=== PATIENT | female | born 1950 | race Caucasian/White ===

== ENCOUNTER → 2017-04-23 12:56 | Outpatient (CLI) | payer BC, SELFPAY ==
--- NOTE | 2017-04-23 12:57 | US_ITS ---
STUDY: ULTRASOUND BREAST - RIGHT REASON FOR EXAM: Female, 66 years old. Pain in the right breast. TECHNIQUE: Axial and longitudinal images of the RIGHT breast were performed with a high resolution ultrasound transducer. COMPARISON: Comparison is made with prior mammogram done earlier in the day. FINDINGS: RIGHT Breast: The upper inner quadrant of the right breast was examined by ultrasound. There is homogeneous fibroglandular tissue. No solid or cystic mass lesion is seen. US/Breast Limited Unilateral IMPRESSION: No acute abnormality is seen. ASSESSMENT CATEGORY: BIRADS Category 1: Negative. A letter regarding these results will be sent to the patient by the facility within 30 days. Electronically Signed: Juventino Mccormick MD at 14:30 EST Tel [phone], Service support ,
--- NOTE | 2017-04-23 13:00 | HPBI_ITS ---
MAMMOGRAPHY - BILATERAL DIAGNOSTIC REASON FOR EXAM: Female, 66 years old. Right breast tenderness. PERTINENT HISTORY: TECHNIQUE: Digital bilateral breast gustavo (3D mammographic acquisition) in the CC and MLO projections. 2-D mediolateral oblique (MLO) and craniocaudad (CC) views of both breasts were obtained. CAD: Full Field Digital Mammography with Computer Added Detection was performed. COMPARISON: Comparison is made with prior study dated May 01, 2016 and March 08, 2014. FINDINGS: Breast Composition: The breasts are extremely dense, which lowers the sensitivity of mammography. There are no dominant masses or suspicious calcifications. No other significant abnormalities are identified. There has been no significant change since the prior study. BI/DIAG MAMM W/CAD, BILAT IMPRESSION: Stable bilateral diagnostic mammogram. One year follow-up recommended. (A) ASSESSMENT CATEGORY: BIRADS Category 1: Negative. A letter regarding these results will be sent to the patient by the facility within 30 days. Approximately 10% of breast cancers are not detected by mammography. A normal mammogram should not delay biopsy of a clinically suspicious abnormality. Electronically Signed: Juventino Mccormick MD at 14:03 EST Tel [phone], Service support ,
== END ==
PROVIDERS: Family Provider Family Medicine; PCP Family Medicine; Visit Provider Obstetrics & Gynecology
DX: N64.4 Mastodynia (principal)
CPT/HCPCS: 76642; 77062; 77066; G0279

== ENCOUNTER → 2017-07-24 07:07 | Outpatient (CLI) | payer BC, SELFPAY ==
[2017-07-24 07:51] LABS: Absolute Lymphocyte Count 1.62 X10^3/ul (0.83-4.51); Absolute Neutrophil Count 2.4 X10^3/uL (2.0-7.7); Basophil# 0.02 X10^3/uL; Basophil% 0.4 % (0-1); Eosinophil# 0.25 X10^3/uL; Eosinophils% 5.2 % (0-5); Hematocrit 45.1 % (37-47); Hemoglobin 14.9 g/dl (12.0-15.0); Lymphocyte # 1.62 X10^3/ul (4.0); Lymphocyte % 33.8 % (19-41); Mean Corpuscular Hgb 28.4 pg (27.0-32.0); Mean Corpuscular Volume 86.1 fL (81-99); Mean Platelet Vol. 11.2 fl (6.2-12.0); Monocyte# 0.52 X10^3/uL; Monocyte% 10.9 % (0-10); Neutrophil # 2.37 X10^3/uL (2.7-7.7); Neutrophil % 49.5 % (47-70); Platelet Count 193 K/mm3 (150-450); RBC Distribution Width SD 40.5 fl (35.1-43.9); Red Blood Count 5.24 M/mm3 (4.2-5.4); White Blood Count 4.8 K/mm3 (4.4-11.0)
[2017-07-24 07:52] LABS: POSITIVE COUNT NO; POSITIVE DIFFERENTIAL NO; POSITIVE MORPHOLOGY NO
[2017-07-24 08:19] LABS: AST(SGOT) 18 U/L (15-37); Alanine Aminotransfer ALT/SGPT 21 U/L (13-56); Albumin, Serum 3.6 g/dL (3.2-5.0); Alkaline Phosphatase 64 U/L (45-117); Anion Gap 7 (5-15); BUN 16 mg/dL (7-18); BUN/Creat Ratio 19.1 RATIO (10-20); Calcium,Total 8.6 mg/dL (8.5-10.1); Chloride 108 mmol/L (98-107); Cholesterol 150 mg/dL (200); Creatinine, Serum 0.84 mg/dL (0.55-1.02); EST Glomerular Filtration Rate 72 mL/min (>60); Est Glom Filt Rate - Afr Amer 87 mL/min (>60); Globulin 3.6 g/dL (2.2-4.2); Glucose 89 mg/dL (74-106); High Density Lipoprotein 51 mg/dL; Potassium 4.1 mmol/L (3.5-5.1); Protein, Total 7.2 g/dL (6.4-8.2); Sodium Level 142 mmol/L (136-145); Triglycerides 80 mg/dL; Very Low Density Lipoprotein 16 mg/dL (5-40)
[2017-07-26 13:14] LABS: Vitamin D,25 Hydroxy 27.1 ng/mL (29.95-100.01)
== END ==
PROVIDERS: Family Provider Family Medicine; PCP Family Medicine; Visit Provider Family Medicine
DX: Z00.00 Encounter for general adult medical examination without abnormal findings (principal); M81.0 Age-related osteoporosis without current pathological fracture; I10 Essential (primary) hypertension
CPT/HCPCS: 36415; 80053; 80061; 82306; 85025

== ENCOUNTER → 2017-08-30 14:40 | Outpatient (CLI) | payer BC, SELFPAY ==
--- NOTE | 2017-08-30 14:43 | CT_ITS ---
STUDY: CT CHEST WITHOUT CONTRAST REASON FOR EXAM: Female, 67 years old. Lung nodule RADIATION DOSAGE (If Supplied By Facility): CTDIvol = ( 7.41 ) mGy, DLP = ( 249.74 ) mGycm TECHNIQUE: Transaxial imaging was performed without the administration of intravenous contrast material. Multiplanar coronal and sagittal images were reformatted. Individualized dose optimization techniques were used for this CT. COMPARISON: 08/15/2015. FINDINGS: There is a stable right upper lung pulmonary nodule measuring 1.7 x 1.3 cm. Stable small pulmonary nodules in the right lower lung and left lower lung measuring up to 5 mm. There is no demonstrated pleural abnormality. Normal heart and pericardium. Normal mediastinum. Normal hilar regions. Normal unenhanced pulmonary arteries. Normal aorta arch and descending thoracic aorta. Normal osseous structures. Small hiatal hernia. CT/Chest without Contrast IMPRESSION: Stable pulmonary nodules. No new pulmonary nodules. No acute infiltrate. Electronically Signed: Hair Mccauley DO at 0:02 EDT , Service support ,
== END ==
PROVIDERS: Family Provider Family Medicine; PCP Family Medicine; Visit Provider Internal Medicine Pulmonary Disease
DX: R91.8 Other nonspecific abnormal finding of lung field (principal)
CPT/HCPCS: 71250

== ENCOUNTER 2018-11-09 11:47 | Emergency (ER) | payer OTHER, BC, SELFPAY ==
[2018-03-22 09:23] VITALS: BMI 26.1
[2018-11-09 11:48] VITALS: BP 160/108; PULSE 68; RESP 18; TEMP 36.8; O2SAT 97; BMI 24.5
--- NOTE | 2018-11-09 11:51 | ED.RN ---
SPOUSE IS RUDE. YELLS AT STAFF STATING THAT I WAS IGNORANT FOR ASKING IF THE PT WOULD LIKE A WHEEL CHAIR. 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
--- NOTE | 2018-11-09 12:39 | RAD_ITS ---
STUDY: X-RAY - RIGHT FOOT CLINICAL: Female, 68 years old. Pain following a fall. TECHNIQUE: 3 view(s) of the foot. COMPARISON: None. FINDINGS: Normal talus, calcaneus, and tarsal bones. Normal visualized subtalar, talonavicular, calcaneocuboid, tarsal and tarsometatarsal articulations. Nondisplaced transverse fracture at the base of the fifth metatarsal. Normal metatarsophalangeal joint of the great toe. Normal tibial and fibular sesamoid bones. Normal interphalangeal joint of the great toe. Normal phalanges of the great toe. Normal second through fifth metatarsophalangeal joints. Normal interphalangeal joints and phalanges of the lesser toes. Soft tissue swelling. RAD/Foot min 3 Views IMPRESSION: Nondisplaced transverse fracture at the base of the fifth metatarsal with overlying soft tissue swelling. Electronically Signed: Juventino Mccormick, at 13:33 EDT , Service support ,
--- NOTE | 2018-11-09 12:39 | CT_ITS ---
STUDY: CT BRAIN WITHOUT CONTRAST REASON FOR EXAM: Female, 68 years old. Left facial swelling following a fall. RADIATION DOSAGE (If Supplied By Facility): CTDIvol = ( 44.99 ) mGy, DLP = ( 748.30 ) mGycm TECHNIQUE: Transaxial CT imaging of the brain was performed without administration of intravenous contrast material. Individualized dose optimization techniques were used for this CT. COMPARISON: No relevant priors. FINDINGS: Small soft tissue hematoma overlying the left is I, Normal calvarium. There is mild cerebral atrophy with widening of the extra-axial spaces and ventricular dilatation. Normal white matter tracts of the cerebral hemispheres. Normal basal ganglia and thalami. Normal brainstem. Normal cerebellum. There is no intracranial hemorrhage. There are no findings of an acute ischemic infarction. Normal visualized paranasal sinuses. CT/Brain/Head without Contrast IMPRESSION: Chronic involutional changes of the brain. Small soft tissue hematoma overlying the left zygoma. Electronically Signed: Juventino Mccormick, at 13:36 EDT , Service support ,
--- NOTE | 2018-11-09 13:14 | RAD_ITS ---
STUDY: X-RAY CHEST REASON FOR EXAM: Female, 68 years old. Pain following a fall. TECHNIQUE: Single AP portable view of the chest. COMPARISON: Comparison is made with prior study dated September 18, 2013. FINDINGS: Hyperinflation. Stable mild scarring at the lung apices slightly more prominent on the right side. There is no demonstrated pleural abnormality. Normal size heart. Mitral valve replacement. Normal mediastinum and david. Normal visualized pulmonary arteries. Normal visualized aortic arch and descending thoracic aorta. Normal visualized thoracic spine. Normal visualized ribs, clavicles, and shoulders. There is no demonstrated abnormality of the visualized soft tissue structures of the upper abdomen. RAD/Chest 1 View (Portable) IMPRESSION: No acute abnormality is seen. Electronically Signed: Juventino Mccormick, at 13:34 EDT , Service support ,
--- NOTE | 2018-11-09 14:26 | ED.DCSUM_ITS ---
History of Present Illness Chief Complaint: Fall Informant: Patient Narrative: She sustained a mechanical fall at work. She tripped into a hole, sustained injury to her right foot, she also did hit her head and has a left periorbital contusion. She denies loss of consciousness or neck pain. Initially she denied chest pain but diffuse chest wall pain. No back pain. No other injuries Past Medical History - Allergies and Home Meds Allergies/Adverse Reactions: Allergies No Known Allergies Allergy (Verified 11/09/18 11:48) Primary Care Physician: Leroy Reeves DO [Primary Care Provider] - Past Medical History: - - Reviewed in [employer] Smoking Status: Never smoker Review of Systems All systems negative except as indicated General: Reports: - - No loss of consciousness Eyes: Reports: - - Periorbital contusion Cardiovascular: Reports: Chest pain Respiratory: Denies: Dyspnea, Cough Gastrointestinal: Denies: Abdominal pain, Vomiting Musculoskeletal: Reports: - - Right foot pain is in HPI Skin: Reports: Wounds Neurological: Denies: Headache Hematologic: Denies: Easy bruising Physical Exam Vital Signs/Narrative: Vital Signs Temp Pulse Resp BP Pulse Ox 11/09/18 11:48 98.2 F 68 18 160/108 H 97 General: Well nourished, Well developed Head: Normocephalic Eyes: - - Slight left periorbital edema. Full range of motion of the eye witho ut any difficulty or pain no intraocular involvement ENT: Negative for: Sinus tenderness Neck: Nontender Cardiovascular: Regular rate, Regular rhythm Respiratory: No distress Abdomen: Soft, Nontender Back: Nontender, Normal Inspection Extremities: Nontender, - - Right proximal fifth metatarsal tenderness. No ankle pain. Skin: Normal color Neurological: Alert, Oriented x3, Cranial nerves II-XII grossly intact Diagnostic/Tx/Re-eval Right foot x-ray read by me shows a transverse proximal fifth metatarsal fracture. There is no displacement. - Medical Decision Making Normal CT. Chest x-ray was also done which was negative. Right foot x-ray shows a proximal fifth metatarsal fracture. I will put her in orthotic boot, give her crutches and analgesia for home she will follow-up with orthopedics. ED Disposition - Plan for ED Patient: Disposition: [facility] Unit Diagnosis: Facial contusion, Chest wall contusion, Foot fracture, right Prescriptions: Oxycodone HCl/Acetaminophen [Percocet 5/325] 1 tab PO Q6H PRN PRN 3 Days #12 tab PRN Reason: Pain Prescription Printed Referrals: Cynthia Paz DO [STAFF PHYSICIAN] - 2 Days
[2018-11-09 14:38] VITALS: BP 176/93; PULSE 75; RESP 16; O2SAT 96
== END 2018-11-09 14:57 ==
PROVIDERS: Emergency Provider Emergency Medicine; Family Provider Family Medicine; PCP Family Medicine
DX: S00.12XA Contusion of left eyelid and periocular area, initial encounter (principal); S20.219A Contusion of unspecified front wall of thorax, initial encounter; S92.354A Nondisplaced fracture of fifth metatarsal bone, right foot, initial encounter for closed fracture; W01.0XXA Fall on same level from slipping, tripping and stumbling without subsequent striking against object, initial encounter; Y93.9 Activity, unspecified; Y92.9 Unspecified place or not applicable
CPT/HCPCS: 70450; 71045; 73630; 99283

== ENCOUNTER 2018-12-09 07:45 | Day surgery (SDC) | payer OTHER, SELFPAY ==
[2018-11-11 13:12] VITALS: BMI 24.5
[2018-12-09] VITALS (10 sets, daily range): BP systolic 142–168; BP diastolic 72–97; PULSE 50–65; RESP 16; TEMP 36.1–36.5; O2SAT 96–100; BMI 25.3
[2018-12-09] MEDS: Lactated Ringers 1,000 ML 100 ML IV ×2 (08:41→11:44)
--- NOTE | 2018-12-09 09:30 | RAD_ITS ---
STUDY: X-RAY - RIGHT FOOT CLINICAL: Screw fixation of fifth metatarsal fracture. TECHNIQUE: 3 intraoperative images of the foot. COMPARISON: Radiographs 11/09/2018. FINDINGS: There is an orthopedic screw transfixing a fracture of the proximal fifth metatarsal diametaphysis in anatomic alignment and position. 52.4 seconds of fluoroscopy time was used. Electronically Signed: Jared Harper MD at 11:15 EDT Tel , Service support , RAD/Foot 2 Views
--- NOTE | 2018-12-09 09:43 | PCM.HP.BLA ---
History and Physical I have re-examined the patient. There are no clinical changes since date of exam. Intake Vital Signs 11/11/18 Body Mass Index (BMI) 24.5 Intake Visit Reasons: Right Foot Is patient in pain?: Yes Pain scale (1-10): 5 Allergies No Known Allergies Allergy (Verified 11/09/18 11:48) Medications aspirin 81 mg tablet,delayed release 81 mg PO QDAY 03/16/17 [History Confirmed 11/11/18] metoprolol succinate ER 50 mg tablet,extended release 24 hr 50 mg PO QDAY #90 tab 03/21/18 [Rx Confirmed 11/11/18] Oxycodone HCl/Acetaminophen [Percocet 5/325] 1 tab PO Q6H PRN PRN 3 Days #12 tab 11/09/18 [Rx Confirmed 11/11/18] PFSH Medical History (Updated 11/10/18 @ 00:00 by Trip Le) Mitral valve prolapse (Chronic) Hypertension (Chronic) Osteoporosis (Acute) Surgical History (Updated 03/18/17 @ 15:23 by GWEN De Dios) History of tonsillectomy (Acute) H/O tubal ligation (Chronic) Hx of mitral valve repair (Chronic ~10/2012) Family History (Updated 03/18/17 @ 15:14 by GWEN De Dios) Brother Thyroid disorder Aunt Cancer Grandmother Cancer Uncle Cancer Mother Asthma Hypertension Thyroid disorder Sister Asthma Social History (Updated 11/11/18 @ 16:04 by CHRISTINA Hoyt) Smoking Status: Never smoker alcohol intake: never substance use type: does not use caffeine: Yes what type of physical activity do you participate in: none seatbelt use: always do you feel safe at home: Yes additional social history: Joe Patient works at [employer] Right Foot: Details: Parts of this documentation were recorded by a scribe, this documentation accurately reflects the service provided and the decisions made by me, CHRISTINA Hoyt 11/11/18 1306. PERRY GOSS is a 68 year old F NEW Patient here today for right 5th metatarsal fracture and bruises from a fall at work on 11/09/18. 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 She was seen in the ED and presents nwb in the boot she was given. She has discoloration over all injured areas but minimal swelling at the fracture site. She has been compliant with a walker at home but has put some limited weight on the foot when needed. Denies numbness, tingling or other associated symptoms. Patient also complains of pain with deep breaths in the left side of her chest, she did have a chest xray in the ED that was negative for fracture. ROS ENT Denies dizziness Resp Reports as per HPI, Reports pain on inspiration (in ribs/chest left side) Musc Reports abnormal walking, Reports joint pain, Denies numbness, Reports stiffness, Denies tingling Neuro Yes as per HPI, Yes abnormal walking, No dizziness, No numbness, No tingling Ortho Exam Right Knee Skin/Wound: No ecchymosis, Yes swelling (Medial knee) Homans Sign: No Knee ROM: Yes ROM-Extension -20 to 0, Yes ROM-Flexion 0-140 Examination: Yes Med jt line tenderness (Or prominently medial femoral condyle and tibial plateau), No Lat jt line tenderness, No Pain with flexion, No Pain with extention Stability: NML: Anterior Drawer, NML: Posterior Drawer, NML: Valgus 30 KNEE: No acute abnormalities on inspection. She is some minor ecchymosis noted on the medial aspect of the knee with some minor puffiness around the contusion. There is tenderness on palpation of the contused area which is the medial femoral condyle and tibial plateau. She has full range of motion comparable to the left knee and does not have any pain with active range of motion in that area. Left Shoulder SHOULDER: Patient does have some tenderness on palpation of the anterior chest wall around the third fourth and fifth ribs. She does have some discomfort here reproduced with deep inspiration and movements. Right Foot/Ankle Skin/Wound: Yes Soft Tissue Swelling; no Ecchymosis or Erythema Contralateral Normal: Yes Exam: present TTP FX site (Base of fifth metatarsal) and TTP distal 5th metatarsal; absent TTP Lateral Malleolus, TTP ATFL, TTP Medial Malleolus, TTP Deltoid Ligament or peroneal snapping Compartments: Compartments: soft ROM: none Pain with ROM Tests: Squeeze Test: 1 Pulses: Dorsalis Pedis: 2 ANKLE: Patient has no acute abnormalities noted on inspection of the right foot. There is some minor swelling on the dorsal aspect of the foot towards the third fourth and fifth metatarsal region. Patient does have evident easily reproduced tenderness on palpation of the base of the fifth metatarsal which is the site of the fracture noted on x-ray. Patient does have intact dorsiflexion and plantarflexion of the foot/ankle as well as ability to move all of her toes. Patient has normal sensation throughout the extremity and normal distal pedal pulses. No rales rhonchi wheezing, no abdominal pain, no audible bruits Assessment & Plan Problems 1. Displaced fracture of fifth metatarsal bone, unspecified foot, initial encounter for closed fracture S92.353A 2. Contusion of left chest wall, initial encounter S20.212A 3. Contusion of face, initial encounter S00.83XA Plan Patient presents to the office following a fall which caused injury to the right foot, the right knee as well as the left chest wall and face. She has evident ecchymosis/bruising around the left eye/cheek. She has evident minor ecchymosis/bruising on the medial knee. We did review her radiographs taken in the emergency department which do show evidence of a right zone 2(Barth) fracture of the fifth metatarsal. We did discuss this fracture in detail treatment options which include conservative care with nonweightbearing immobilization versus more aggressive intramedullary screw fixation primarily to poor healing rates of this fracture. Patient and state they were already thinking about this and would like to proceed with surgery to get her back on her feet and working sooner. As a result we will apply for approval from Worker's Compensation. The risks and benefits of surgery were discussed with patient and her . We also discussed postoperative care/rehabilitation. All their questions were answered and consent was signed in office today. Patient was given antibacterial soap to be used the night before in the morning of surgery. Patient will not know the time of her surgery until the day before. Patient be contacted by surgery department as well as anesthesia for preanesthesia testing. In regards to the knee she is to continue to ice and elevate and can reevaluate after we take care of the toe. We did discuss the chest wall and that oftentimes some small rib fractures can be missed on initially evaluation/radiographs and therefore if persisting pain can always go back in a few weeks and recheck x-rays to see if there is any evident healing. She can take anti-inflammatories and ice as needed to the areas. This note was generated with [employer] dictation software. It may contain incorrect words, spelling, and punctuation that were not noted in checking the note before signing. Coding Level of Care Code Off vis,new,level 4 Diagnoses Displaced fracture of fifth metatarsal bone, unspecified foot, initial encounter for closed fracture S92.353A Contusion of left chest wall, initial encounter S20.212A ??Encounter type: initial encounter ??Laterality: left Contusion of face, initial encounter S00.83XA ??Encounter type: initial encounter
[2018-12-09] MEDS: Cefazolin 2 GM in 0.9% Normal Saline 100 ML IV (09:45)
--- NOTE | 2018-12-09 09:59 | OP.PCM_ITS ---
Report of Operation Date of Procedure: 12/09/18 Pre-Operative Diagnosis: right paul fracture Post-Operative Diagnosis: same Surgery/Procedure Performed:: intramedullary screw fixation right fifth metatarsal appeals officer: Rolan Willingham Type of Anesthesia:: General Anesthesiologist: Ruiz Judd Estimated Blood Loss (mL): minimal Fluids Replaced: 700cc lr Description of Procedure: Preop note Patient is a 68-year-old female who sustained an inversion injury to her right foot at work. Patient was seen in the office x-ray confirms a Paul fracture patient was followed by 4 weeks still no healing and tenderness along the fracture site. Risk benefits and alternatives were discussed with patient. Risks including but not limited to blood loss, blood clot, infection, neurovascular, failure procedure, loss of life and loss of limb. Patient is aware of like proceed with right intramedullary screw fixation of the fifth metatarsal. Operative note Next Patient seen and examined preoperative holding area. Right leg was marked. Patient brought to the operating room placed supine on the operating sign, anesthesia, antibiotics were administered. The right leg was prepped and draped usual sterile fashion with tourniquet around her upper thigh. Incision was marked out about 2 cm proximal to the base of the fifth metatarsal. Right leg was then elevated exsanguinated and triggers rates her pressure of 200 450 torr. We then made an incision with a 15 blade to cut through skin dissected down tenotomies level of the base of the fifth we then placed a guidewire with tissue guide over and placed a guidewire high and on the inside through the center of the medullary canal. After doing so we did have confirmed in AP and lateral planes per good placement of our intramedullary guidewire. We then placed screw next to the fifth metatarsal determine which size 4.5 screws will be determined. We then tapped appropriate catheter using it again tissue protector across the fracture site we then measured about a we measured to be 50 off of the top guide in place a 50, 4.5 mm solids Arthrex screw across the fracture site and had good compression in the screw head was very. Tourniquet was inflated for total working time of 80 minutes. Irrigation to the incision and then placed simple nylon stitches to the skin. Sterile dressings were applied and posterior splint was applied. Patient tolerated procedure well no complication transferred recovery room in stable condition next Postoperative note Nonweightbearing right leg Elevate Next Percocet at Hospital pharmacy Call with increased pain no missing or other issues arises This note was generated with [employer] dictation software. It may contain incorrect words, spelling, and punctuation that were not noted in checking the note before signing. Follow-up in 2 weeks with Moses or myself with repeat x-rays and dressing change
--- NOTE | 2018-12-09 09:59 | DCINST_ITS ---
Discharge Diet: No Restrictions - nwb right leg, follow up in 2 weeks for dressing change and suture removal, call with concerns Discharge Activity: May Not Drive May shower in (days): 1 Ice area for (Minutes): 20 - Every hour while awake. Weight Bearing Status: Weight bearing as tolerated Keep extremity elevated above heart level: Operative Extremity Call your doctor if your incision/area has: Continuous Slow Oozing, Sudden Increased Bleeding, Increased Pain/ Swelling, Increased Redness, Foul Smelling Discharge Call your doctor if you observe: Fever of 101 or Higher, Coldness, Increased Pain, Numbness or Tingling, Change in Color, Calf discomfort Allergies/Adverse Reactions: Allergies No Known Allergies Allergy (Verified 12/09/18 08:21) Medications to take at Discharge aspirin 81 mg tablet,delayed release 81 mg PO QDAY 03/16/17 metoprolol succinate ER 50 mg tablet,extended release 24 hr 50 mg PO QDAY #90 tab 03/21/18 Oxycodone HCl/Acetaminophen [Percocet 5/325] 1 - 2 tab PO Q6H PRN PRN 5 Days #20 tab 12/09/18 The following prescriptions were given: Oxycodone HCl/Acetaminophen [Percocet 5/325] 1 - 2 tab PO Q6H PRN PRN 5 Days #20 tab PRN Reason: Pain Transmission Status: Received by [facility] Primary Care Physician: Leroy Reeves DO [Primary Care Provider] - Test Results: Test results from this visit will be discussed in further detail at your follow- up appointment, if applicable. Please Follow Up With: Cynthia Paz DO - [phone]
[2018-12-09] MEDS: Mupirocin Ointment 22gm Tube 1 APPLIC (10:35)
[2018-12-09] MEDS: Bupiv/Epi 0.5% Mpf 30 ML Vial (10:36)
== END 2018-12-09 13:40 | disposition home or self-care (01) ==
LOC: SDC 07:46 → AC 07:47
PROVIDERS: Family Provider Family Medicine; PCP Family Medicine; Referring Provider Orthopaedic Surgery; Visit Provider Orthopaedic Surgery
PROC: (CPT 28485; principal; 2018-12-09 09:15)
DX: S92.351A Displaced fracture of fifth metatarsal bone, right foot, initial encounter for closed fracture (principal); S20.212A Contusion of left front wall of thorax, initial encounter; S00.83XA Contusion of other part of head, initial encounter; S00.12XA Contusion of left eyelid and periocular area, initial encounter; W01.0XXA Fall on same level from slipping, tripping and stumbling without subsequent striking against object, initial encounter; Y93.9 Activity, unspecified; Y92.9 Unspecified place or not applicable; I34.1 Nonrheumatic mitral (valve) prolapse; I10 Essential (primary) hypertension; M81.0 Age-related osteoporosis without current pathological fracture; Z86.2 Personal history of diseases of the blood and blood-forming organs and certain disorders involving the immune mechanism; Z78.0 Asymptomatic menopausal state; Z95.2 Presence of prosthetic heart valve; Z79.82 Long term (current) use of aspirin; Z79.899 Other long term (current) drug therapy
CPT/HCPCS: 28485; 73620; 76000; C1713; J7120; J2405

== ENCOUNTER → 2018-12-22 09:57 | Outpatient (CLI) | payer OTHER, SELFPAY ==
[2018-12-22 09:57] VITALS: BMI 25.3
--- NOTE | 2018-12-22 09:59 | RAD_ITS ---
STUDY: X-RAY - RIGHT FOOT CLINICAL: Postop 2 weeks. TECHNIQUE: 3 view(s) of the foot. COMPARISON: Intraoperative images 12/09/2018. FINDINGS: Normal talus, calcaneus, and tarsal bones. Normal visualized subtalar, talonavicular, calcaneocuboid, tarsal and tarsometatarsal articulations. There is an orthopedic screw transfixing a proximal fifth metatarsal fracture in anatomic alignment and position. Normal metatarsophalangeal joint of the great toe. Normal tibial and fibular sesamoid bones. Normal interphalangeal joint of the great toe. Normal phalanges of the great toe. Normal second through fifth metatarsophalangeal joints. Normal interphalangeal joints and phalanges of the lesser toes. The soft tissue structures are unremarkable. RAD/Foot min 3 Views IMPRESSION: ORIF of fifth metatarsal fracture without interval change. Electronically Signed: Jared Harper MD at 12:36 EDT Tel , Service support ,
== END ==
PROVIDERS: Family Provider Family Medicine; PCP Family Medicine; Referring Provider Orthopaedic Surgery; Visit Provider Orthopaedic Surgery
DX: S92.351A Displaced fracture of fifth metatarsal bone, right foot, initial encounter for closed fracture (principal)
CPT/HCPCS: 73630

== ENCOUNTER → 2019-01-17 10:39 | Outpatient (CLI) | payer OTHER, SELFPAY ==
[2019-01-17 10:37] VITALS: BMI 25.3
--- NOTE | 2019-01-17 10:41 | RAD_ITS ---
STUDY: X-RAY - RIGHT FOOT CLINICAL: Female, 68 years old. Postoperative evaluation after removal of surgical hardware. TECHNIQUE: 3 view(s) of the foot. COMPARISON: December 22, 2018 FINDINGS: Generalized osteopenia. Normal talus, calcaneus, and tarsal bones. Normal visualized subtalar, talonavicular, calcaneocuboid, tarsal and tarsometatarsal articulations. Stable cancellus screw within the proximal aspect of the fifth metatarsal. Transverse fracture of the proximal fifth metatarsal is again identified. Mild osteoarthritic changes of the MTP and IP joints are stable. The soft tissue structures are unremarkable. RAD/Foot min 3 Views IMPRESSION: Stable examination of the right foot with no complications identified. Electronically Signed: Rell Romero MD at 11:06 EST , Service support ,
== END ==
PROVIDERS: Family Provider Family Medicine; PCP Family Medicine; Referring Provider Orthopaedic Surgery; Visit Provider Orthopaedic Surgery
DX: Z47.89 Encounter for other orthopedic aftercare (principal)
CPT/HCPCS: 73630

== ENCOUNTER → 2019-03-06 10:12 | Outpatient (CLI) | payer OTHER, SELFPAY ==
[2019-03-06 10:13] VITALS: BMI 25.3
--- NOTE | 2019-03-06 10:13 | RAD_ITS ---
STUDY: X-RAY - RIGHT FOOT CLINICAL: Female, 68 years old. F/U POST OP TECHNIQUE: 3 view(s) of the foot. COMPARISON: 01/17/2019 FINDINGS: Normal talus, calcaneus, and tarsal bones. Normal visualized subtalar, talonavicular, calcaneocuboid, tarsal and tarsometatarsal articulations. Stable fixation screw of the fifth metatarsal. The previously seen fracture line is no longer identified. Normal metatarsophalangeal joint of the great toe. Normal tibial and fibular sesamoid bones. Normal interphalangeal joint of the great toe. Normal phalanges of the great toe. Normal second through fifth metatarsophalangeal joints. Normal interphalangeal joints and phalanges of the lesser toes. The soft tissue structures are unremarkable. RAD/Foot min 3 Views IMPRESSION: Interval healing of fifth metatarsal fracture. Stable fixation screw. Electronically Signed: Hugh Jackson MD (Brooks) at 8:04 EST , Service support ,
== END ==
PROVIDERS: Family Provider Family Medicine; PCP Family Medicine; Referring Provider Physician Assistant; Visit Provider Physician Assistant
DX: Z47.89 Encounter for other orthopedic aftercare (principal)
CPT/HCPCS: 73630

== ENCOUNTER → 2019-03-23 09:57 | Outpatient (CLI) | payer BC, SELFPAY ==
[2019-03-23 09:04] VITALS: BMI 25.2
[2019-03-23 11:00] LABS: Absolute Lymphocyte Count 1.75 X10^3/uL (0.83-4.51); Absolute Neutrophil Count 3.2 X10^3/uL (2.0-7.7); Basophil# 0.05 X10^3/uL; Basophil% 0.8 % (0-1); Eosinophil# 0.25 X10^3/uL; Eosinophils% 4.2 % (0-5); Lymphocyte # 1.75 X10^3/ul (4.0); Lymphocyte % 29.6 % (19-41); Mean Corp Hgb Conc 31.9 g/dL (32-36); Mean Corpuscular Hgb 27.9 pg (27.0-32.0); Mean Corpuscular Volume 87.5 fL (81-99); Monocyte# 0.65 X10^3/uL; NRBC Flagged by Analyzer 0 % (0-5); Neutrophil # 3.19 X10^3/uL (2.7-7.7); Neutrophil % 54.1 % (47-70); Platelet Count 225 K/mm3 (150-450); RBC Distribution Width CV 13.1 % (11.6-14.6); RBC Distribution Width SD 41.8 fl (35.1-43.9); Red Blood Count 5.37 M/mm3 (4.2-5.4); White Blood Count 5.9 K/mm3 (4.4-11.0)
[2019-03-23 11:30] LABS: AST(SGOT) 17 U/L (15-37); Alanine Aminotransfer ALT/SGPT 23 U/L (13-56); Albumin, Serum 3.8 g/dL (3.2-5.0); Alkaline Phosphatase 77 U/L (45-117); Anion Gap 3 (5-15); BUN 16 mg/dL (7-18); BUN/Creat Ratio 17.8 RATIO (10-20); Bilirubin, Direct 0.13 mg/dL (0.00-0.30); Calcium,Total 8.9 mg/dL (8.5-10.1); Chloride 104 mmol/L (98-107); Cholesterol 169 mg/dL (200); EST Glomerular Filtration Rate 66 mL/min (>60); Est Glom Filt Rate - Afr Amer 80 mL/min (>60); Globulin 3.7 g/dL (2.2-4.2); Glucose 73 mg/dL (74-106); High Density Lipoprotein 51 mg/dL; Protein, Total 7.5 g/dL (6.4-8.2); Sodium Level 139 mmol/L (136-145); Triglycerides 163 mg/dL; Very Low Density Lipoprotein 33 mg/dL (5-40)
== END ==
PROVIDERS: PCP Family Medicine; Referring Provider Internal Medicine Cardiovascular Disease; Visit Provider Internal Medicine Cardiovascular Disease
DX: I10 Essential (primary) hypertension (principal); Z98.890 Other specified postprocedural states
CPT/HCPCS: 36415; 80048; 80061; 80076; 85025

== ENCOUNTER → 2019-03-28 12:48 | Outpatient (CLI) | payer OTHER, SELFPAY ==
[2019-03-28 12:44] VITALS: BMI 25.2
--- NOTE | 2019-03-28 12:48 | RAD_ITS ---
STUDY: X-RAY - RIGHT FOOT CLINICAL: Fracture follow-up. TECHNIQUE: 3 view(s) of the foot. COMPARISON: Radiographs 03/06/2019. FINDINGS: Normal talus, calcaneus, and tarsal bones. Normal visualized subtalar, talonavicular, calcaneocuboid, tarsal and tarsometatarsal articulations. There is an orthopedic screw transfixing a healed fifth metatarsal fracture in anatomic alignment and position. Normal metatarsophalangeal joint of the great toe. Normal tibial and fibular sesamoid bones. Normal interphalangeal joint of the great toe. Normal phalanges of the great toe. Normal second through fifth metatarsophalangeal joints. Normal interphalangeal joints and phalanges of the lesser toes. The soft tissue structures are unremarkable. RAD/Foot min 3 Views IMPRESSION: ORIF of fifth metatarsal fracture with the fracture line no longer identified. Electronically Signed: Jared Harper MD at 11:40 EST Tel , Service support ,
== END ==
PROVIDERS: PCP Family Medicine; Referring Provider Orthopaedic Surgery; Visit Provider Orthopaedic Surgery
DX: S92.351A Displaced fracture of fifth metatarsal bone, right foot, initial encounter for closed fracture (principal); Z47.89 Encounter for other orthopedic aftercare
CPT/HCPCS: 73630

== ENCOUNTER 2019-03-29 10:00 | Outpatient (RCR) | payer OTHER, SELFPAY ==
[2019-01-17 11:30] VITALS: BMI 25.3
--- NOTE | 2019-02-08 11:25 | HP.PTEVAL ---
Patient's Visit Information PERRY GOSS is a 68 year old F referred to Physical Therapy by Cynthia Paz DO with a diagnosis of R 5th metatarsal Fx. Date of Evaluation: 02/08/19 Physical Therapist: Hamlet Campbell DPT - Visit Plan Frequency: 2-3x /Week Duration: 4-6 Weeks Plan: Start with AROM, DF stretching, BAPS board seated. Once progressing with ROM add in light band strengthening and intrinsic strengthening. Progress HEP as tolerated. PT. is WBAT in cam boot at this point in time. I will talk to physician for length of time that she is to remain iin the boot. I talked with her about slowly increasing standing and walking in home building as tolerated. - Subjective Findings: Pt. is here today for her initial evaluation with diagnosis of R 5th metatarsal fx. 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 Pt. subsequently had a 5th metatarsal ORIF with intermedulary screw placement. DOS: Pt. reports having intermittent pain, randomly at her R lateral foot. 12/09/18. Pt. was in a cast for short leg cast for 4 weeks and is now in a CAM boot. Pt. was to be TTWBing for 2 weeks, but is now WBAT. She arrives today walking without AD with full WBing on LLE. 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 Pt. reports having to stand and walk for 8-10 hours per day. Pt. also has to lift objects upto ~50lbs, but not frequently. Pt. denies N/T in either LE. Pt. reprots having increased soreness with walking and is able to walking upto 5 min. befor requiring to sit down. Pt. has not been out of the house much, but has tried a few times. Pt. is having some trouble sleeping on her R side. Pt. is hopeful to reduce symptoms, increase her tolerance to walking and get back to work without issues. - Pain R lateral foot Pain Intensity (Out of 10): 2 Pain Intensity Range: 0, 6 - Objective POSTURE: Pt. is able to stand, but does have increased R wt. shift. PT. tends to stand lacking TKE. PALPATION: Pt. has normal healing incision, no signs of infection. Pt. has tenderness along 5th metatarsal and tenderness along achilles tendon. No signs of blood cloting. NEURO: Normal throughout BLEs. ROM: L ankle- DF 16deg, PF 48deg, INV 18deg, EVR 16deg. R ankle- DF- minus 2 deg, PF 38deg, INV 12deg, EVR 8deg. Pt. reports gastroc tightness in RLE. MMT: RLE- ankle 4/5 throughotu, except foot flexion intrinsics is 4-/5. LLE- 5/5 throughout. GAIT: Pt. ambulates with CAM boot, but lacks TKE on RLE, pt. tends to walk on the forefoot, minimal heel strike noted. - Goals Goal 1:: Pt. to be I with HEP. Goal Time Frame: 4-6 Weeks Goal 2:: Pt. to sleep throughout the night without increase in symptoms. Goal Time Frame: 4-6 Weeks Goal 3:: Pt. to have R ankle DF ROM increased to at least 15deg allowing for normal gait. Goal Time Frame: 4-6 Weeks Goal 4:: Pt. to having increased R ankle and foot intrinsic strength by 1/2 grade throughout effected musculature. Goal Time Frame: 4-6 Weeks Goal 5:: Pt. to ambulate with normal gait pattern for unlimited distances without increase in symptoms. Goal Time Frame: 4-6 Weeks Goal 6:: Pt. to be able to tolerate being on her feet for 6-8 hours including standing/walking/lifting allowing her to complete all job duties. Goal Time Frame: 4-6 Weeks - Rehabilitation Potential Physical Therapy Diagnosis: Pt. is stiff throughout her R ankle, worst into DF after having surgical intervetion to repair a 5th metatarsal fx. Pt. is having some weakness, increased pain and diffuclty with work related activites. Pt. would benefit from PT to address above limitations progressing back to work related activites as tolerated. Rehabilitation Potential: Excellent - Anticipated Interventions Patient/Client Instruction: Educate patient on: Condition, Plan of Care, Risk Factors, Benefits of Fitness Program For the Purpose of:: To facilitate caregiver knowledge, To improve self management, To prevent re-injury, To improve ability to perform tasks related to life management, To improve tolerance to ADL's Therapeutic Exercise to Include: Strength training, Endurance training, Balance training, Body mechanics, Flexibilty training, Gait and locomotor training, Passive ROM, Active ROM For the Purpose of:: To decrease pain, To decrease swelling/inflammation, To improve nutrient delivery to tissue, To increase oxygenation perfusion, To improve muscle performance and motor function, To improve ability to perform ADL's, To improve gait and locomotor functions, To improve health of tissue, To decrease soft tissue restriction, To increase flexibility/ROM Manual Therapy Techniques to Include: Mobilization, Passive ROM For the Purpose of:: To decrease pain, To decrease swelling/inflammation, To increase ROM, To improve nutrient delivery to tissue, To increase oxygenation perfusion IF ES: Yes Cryotherapy (ice pack, ice massage): Yes For the Purpose of:: To decrease pain, To decrease swelling/inflammation, To increase ROM Thank you for the opportunity to evaluate your patient. For Medicare and Medicare HMO plans, please review the plan of care and approve it. It will need to be FAXED BACK to us at [phone] for Medicare purposes. For Medicare only, by signing this I certify the plan of care. Please let me know if there are questions or concerns regarding this plan of care. Physician Signature: Date:
== END 2019-03-29 19:00 | disposition home or self-care (01) ==
LOC: PT 10:00
PROVIDERS: Family Provider Family Medicine; PCP Family Medicine; Referring Provider Orthopaedic Surgery; Visit Provider Orthopaedic Surgery
DX: S92.353D Displaced fracture of fifth metatarsal bone, unspecified foot, subsequent encounter for fracture with routine healing (principal)
CPT/HCPCS: 97110; 97161

== ENCOUNTER → 2019-04-24 13:43 | Outpatient (CLI) | payer BC, SELFPAY ==
[2019-03-23 09:04] VITALS: BMI 25.2
[2019-03-28 12:44] VITALS: BMI 25.2
--- NOTE | 2019-04-24 13:45 | ECHOD_ITS ---
Reason For Study: VALVE REPLACEMENT EVAL Procedure This was a 2D Doppler, Color Flow transthoracic echocardiogram. Exam performed in department. Left Ventricle Normal LV size. Left ventricular systolic function is normal. The estimated ejection fraction is 65 %. Normal diastology for age. No regional wall motion abnormalities noted. Right Ventricle Normal RV size. Normal systolic function. Atria Normal left atrium. Normal right atrium. Mitral Valve Normal mitral valve. An annuloplasty ring is noted in the mitral position. Tricuspid Valve Normal tricuspid valve. Mild tricuspid valve insufficiency. Pulmonary artery systolic pressure is 30 mmHg. Aortic Valve Normal aortic valve. Trisinus/trileaflet aortic valve. Pulmonic Valve Normal pulmonic valve. Great Vessels Normal aortic root. The pulmonary artery is normal size. Normal inferior vena cava. Pericardium/Pleural No pericardial effusion. MMode/2D Measurements & Calculations LVIDd: 3.9 cm IVSd: 1.1 cm Ao root diam: 3.3 cm LVIDs: 2.7 cm LVPWd: 1.1 cm RVDd: 3.1 cm FS: 30.2 % LAV(MOD-bp): 38.0 ml LVAd ap4: 24.8 cm2 SV(MOD-sp4): 40.0 ml LAV(MOD-bp) Indexed: 21.1 ml/m2 EDV(MOD-sp4): 68.6 ml LAV(MOD-sp2): 45.9 ml EDV(sp4-el): 70.4 ml LAV(MOD-sp4): 27.1 ml LVAs ap4: 14.2 cm2 ESV(MOD-sp4): 28.6 ml ESV(sp4-el): 26.5 ml EF(MOD-sp4): 58.3 % EF(sp4-el): 62.3 % SV(sp4-el): 43.9 ml LA A4 area: 11.8 cm2 LA dimension(2D): 3.7 cm RA A4 area: 9.8 cm2 Time Measurements MV dec time: 0.25 sec Doppler Measurements & Calculations MV E max tavares: 97.7 cm/sec Lat Peak E' Tavares: 11.0 cm/sec Med Peak E' Tavares: 6.4 cm/sec MV A max tavares: 99.9 cm/sec E/E' lat: 8.9 E/E' med: 15.4 MV E/A: 0.98 MV V2 max: 115.8 cm/sec MV P1/2t max tavares: 99.7 cm/sec Ao V2 max: 141.0 cm/sec MV max P.4 mmHg MV P1/2t: 105.7 msec Ao max P.0 mmHg MV V2 mean: 78.6 cm/sec MV mean P.7 mmHg MV dec slope: 276.1 cm/sec2 MV V2 VTI: 36.7 cm MVA(P1/2t): 2.1 cm2 LV V1 max: 106.9 cm/sec PA V2 max: 89.6 cm/sec TR max tavares: 259.4 cm/sec LV V1 max P.6 mmHg TR max P.9 mmHg MV P1/2t-pr_phl: 103.9 msec Interpretation Summary Normal LV size. Left ventricular systolic function is normal. The estimated ejection fraction is 65 %. Normal diastology for age. Mild tricuspid valve insufficiency. Ordering Physician: Ashwin Durbin Referring Physician: BEBE PEREZ Performed By: Mimi Patel RDCS
== END ==
PROVIDERS: PCP Family Medicine; Referring Provider Internal Medicine Cardiovascular Disease; Visit Provider Internal Medicine Cardiovascular Disease
DX: Z98.890 Other specified postprocedural states (principal)
CPT/HCPCS: 93306

== ENCOUNTER 2020-05-09 15:11 | Outpatient (RCR) | payer BC, SELFPAY ==
[2020-03-28 08:37] VITALS: BMI 25.9
[2020-05-09] MEDS: COVID-19 VACC, MRNA(PFIZER)/PF 30 MCG/0.3 ML SYRINGE IM (16:43)
[2020-05-30] MEDS: COVID-19 VACC, MRNA(PFIZER)/PF 30 MCG/0.3 ML SYRINGE IM (16:25)
== END 2020-08-06 23:59 ==
LOC: IMMUN 15:11
PROVIDERS: PCP Family Medicine; Referring Provider Family Medicine; Visit Provider Family Medicine
DX: Z23 Encounter for immunization (principal)
CPT/HCPCS: 0001A; 0002A; 91300

== ENCOUNTER → 2020-08-14 07:26 | Outpatient (CLI) | payer BC, SELFPAY ==
[2020-03-28 08:37] VITALS: BMI 25.9
[2020-08-14 08:05] LABS: Absolute Lymphocyte Count 1.63 X10^3/uL (0.83-4.51); Absolute Neutrophil Count 2.9 X10^3/uL (2.0-7.7); Basophil# 0.04 X10^3/uL; Basophil% 0.7 % (0-1); Eosinophil# 0.21 X10^3/uL; Eosinophils% 3.9 % (0-5); Hematocrit 46.9 % (37-47); Hemoglobin 15.1 g/dL (12.0-15.0); Lymphocyte # 1.63 X10^3/ul (0.83-4.51); Mean Corp Hgb Conc 32.2 g/dL (32-36); Mean Corpuscular Hgb 27.2 pg (27.0-32.0); Mean Corpuscular Volume 84.5 fL (81-99); Mean Platelet Vol. 10.7 fl (6.2-12.0); Monocyte# 0.62 X10^3/uL; Monocyte% 11.4 % (0-10); NRBC Flagged by Analyzer 0 % (0-5); Neutrophil # 2.92 X10^3/uL (2.7-7.7); Neutrophil % 53.6 % (47-70); Platelet Count 238 K/mm3 (150-450); RBC Distribution Width CV 13.2 % (11.6-14.6); RBC Distribution Width SD 41.1 fl (35.1-43.9); Red Blood Count 5.55 M/mm3 (4.2-5.4); White Blood Count 5.4 K/mm3 (4.4-11.0)
[2020-08-14 08:31] LABS: AST(SGOT) 21 U/L (15-37); Alanine Aminotransfer ALT/SGPT 26 U/L (13-56); Albumin, Serum 3.9 g/dL (3.2-5.0); Alkaline Phosphatase 80 U/L (45-117); Anion Gap 3 (5-15); BUN 15 mg/dL (7-18); BUN/Creat Ratio 16.9 RATIO (10-20); Calcium,Total 9.1 mg/dL (8.5-10.1); Chloride 106 mmol/L (98-107); Cholesterol 181 mg/dL (200); Creatinine, Serum 0.89 mg/dL (0.55-1.02); EST Glomerular Filtration Rate 67 mL/min (>60); Est Glom Filt Rate - Afr Amer 80 mL/min (>60); Globulin 4.1 g/dL (2.2-4.2); Glucose 96 mg/dL (74-106); High Density Lipoprotein 63 mg/dL; Potassium 4.1 mmol/L (3.5-5.1); Sodium Level 139 mmol/L (136-145); Triglycerides 112 mg/dL; Very Low Density Lipoprotein 22 mg/dL (5-40)
[2020-08-14 08:36] LABS: Vitamin D,25 Hydroxy 39.1 ng/mL
== END ==
PROVIDERS: PCP Family Medicine; Referring Provider Family Medicine; Visit Provider Family Medicine
DX: Z00.00 Encounter for general adult medical examination without abnormal findings (principal); M81.0 Age-related osteoporosis without current pathological fracture; I10 Essential (primary) hypertension
CPT/HCPCS: 36415; 80053; 80061; 82306; 85025

== ENCOUNTER → 2020-08-22 15:56 | Outpatient (CLI) | payer BC, SELFPAY ==
[2020-03-28 08:37] VITALS: BMI 25.9
--- NOTE | 2020-08-22 16:00 | BD_ITS ---
STUDY: DUAL ENERGY X-RAY ABSORPTIOMETRY / DXA REASON FOR EXAM: Female, 70 years old. M810. Patient is postmenopausal. Loss of height. TECHNIQUE: Bone Mineral Density (BMD) measurements of lumbar spine and bilateral hips were obtained. COMPARISON: Comparison is made with prior study dated 03/08/2014. FINDINGS: Lumbar Spine (L1-L4): g/cm2 (0.830) / T-score (-2.8) / Z-score (-1.1) Findings are suggestive of osteoporosis with a high fracture risk. Increased kyphosis. Left Femur Total: g/cm2 (0.684) / T-score (-2.6) / Z-score (-1.1) Left Femoral Neck: g/cm2 (0.706) / T-score (-2.4) / Z-score (-0.7) Right Femur Total: g/cm2 (0.685) / T-score (-2.6) / Z-score (-1.1) Right Femoral Neck: g/cm2 (0.752) / T-score (-2.1) / Z-score (-0.3) The T-Scores on the most recent prior examination were: Lumbar Spine (L1-L4): There has been worsening of bone density since the previous examination. Left Femur Total: which represents a worsening of 7.7%. Right Femur Total: which represents a worsening of 5.5%. BD/Dexa Bone Density Study IMPRESSION: The patient is considered osteoporotic as outlined below according to World Leon Organization (WHO) criteria with a high fracture risk. There has been worsening of bone density since the previous examination. Reference Information: The T-score is the number of standard deviations above or below the standard which is normal for young adults at their peak bone mineral density. The World Health Organization (WHO) interprets the T-scores as follows: Above -1 Normal bone density Between -1 and -2.5 Osteopenia Equal to / or below -2.5 Osteoporosis As a practical clinical guideline, osteopenia may be graded as follows: Mild -1 through -1.5 Moderate -1.6 through -2.0 Severe -2.1 through -2.4 The Z-score is the number of standard deviations above or below age-matched controls. A Z-score of less than -1.5 would be considered abnormal. References: 1. NIH Osteoporosis and Related Bone Diseases www osteo.org 2. International Society for Clinical Densitometry www iscd.org 3. National Osteoporosis Foundation www nof.org Electronically Signed: Juventino Mccormick MD at 9:00 EDT , Service support ,
--- NOTE | 2020-08-22 16:45 | BI_ITS ---
MAMMOGRAPHY - BILATERAL SCREENING 3-D TOMOSYNTHESIS REASON FOR EXAM: Female, 70 years old. SCREENING PERTINENT HISTORY: No significant family history. TECHNIQUE: 2-D mammograms and 3-D Tomosynthesis of the breast (s) were performed. CAD was performed. COMPARISON: 04/23/2017 FINDINGS: The breast composition is extremely dense fibroglandular tissue that lowers the sensitivity of mammography. No dense spiculated masses or suspicious microcalcifications are identified. No architectural distortion is identified. There is no skin thickening or nipple retraction. There has been no significant change since the prior study of 04/23/2017 BI/SCRN MAMM (CAD)W/CHRISTA BILAT IMPRESSION: No mammographic signs of malignancy. Routine yearly mammograms recommended. ASSESSMENT CATEGORY: BIRADS Category 1: Negative. A letter regarding these results will be sent to the patient by the facility within 30 days. FOLLOW UP RECOMMENDATION: Yearly follow up mammogram recommended. (A) Approximately 10% of breast cancers are not detected by mammography. A normal mammogram should not delay biopsy of a clinically suspicious abnormality. Electronically Signed: Roseanne Noel, at 13:39 EDT Tel , Service support ,
== END ==
PROVIDERS: PCP Family Medicine; Referring Provider Family Medicine; Visit Provider Family Medicine
DX: Z12.31 Encounter for screening mammogram for malignant neoplasm of breast (principal); M81.0 Age-related osteoporosis without current pathological fracture
CPT/HCPCS: 77063; 77067; 77080

== ENCOUNTER 2020-08-26 08:22 | Emergency (ER) | payer OTHER, BC, SELFPAY ==
[2020-03-28 08:37] VITALS: BMI 25.9
[2020-08-26 08:23] VITALS: BP 159/79; PULSE 75; RESP 16; TEMP 36.4; O2SAT 96; BMI 26.2
--- NOTE | 2020-08-26 09:03 | EDS_ITS ---
HPI History of Present Illness Chief Complaint: Fall Informant: patient Narrative Narrative: 70-year-old female presents the emergency room for injuries sustained after a fall. Patient was walking into work today when she tripped over a rug fall and striking the wall. States she initially felt she had some knee pain but that has resolved. She notes some lateral left ankle discomfort. She has been able to bear weight. She denies any significant swelling. She also states she struck her face against the wall. She notes. Orbital bruising on the left and a superficial abrasion. She bent her glasses. Patient had no loss of conscious. No nausea vomiting. Patient takes a baby aspirin a day. No blood thinners. [facility] Medical History (Updated 08/26/20 @ 09:[address] Max Nava DO) Essential (primary) hypertension Mastalgia Nonrheumatic mitral (valve) insufficiency Nonrheumatic mitral (valve) prolapse Osteoporosis Pulmonary nodule Home Medications aspirin 81 mg tablet,delayed release 81 mg PO QDAY 03/16/17 [History Last Taken Unknown] amlodipine 10 mg tablet 10 mg PO DAILY #90 tab 06/11/20 [Rx Last Taken Unknown] metoprolol succinate 50 mg tablet,extended release 24 hr 50 mg PO QDAY #90 tab 07/01/20 [Rx Last Taken Unknown] Allergy/AdvReac Type Severity Reaction Status Date / Time No Known Allergies Allergy Verified 08/26/20 08:25 Family History Brother Thyroid disorder Aunt Cancer Grandmother Cancer Uncle Cancer Mother Asthma Hypertension Thyroid disorder Sister Asthma Surgical History H/O tubal ligation History of open reduction and internal fixation (ORIF) procedure (11/2018) History of right and left heart catheterization (10/21/12) History of tonsillectomy Hx of mitral valve repair (11/10/12) Social History Smoking Status: Never smoker alcohol intake: never substance use type: does not use caffeine: Yes what type of physical activity do you participate in: none seatbelt use: always do you feel safe at home: Yes additional social history: Joe Patient works at [employer] ROS ROS ED Constitutional Constitutional ED: Denies chills or weight loss Eyes Eyes: Denies change in vision or diplopia ENT ENT ED: Denies ear pain, rhinorrhea or sore throat Cardiovascular Cardiovascular: Denies chest pain, orthopnea, palpitations or racing heartbeat Respiratory/Chest Respiratory/Chest: Denies cough, dyspnea or orthopnea Gastrointestinal Gastrointestinal: Denies abdominal pain, diarrhea, nausea or vomiting Genitourinary Genitourinary ED: Denies dysuria, hematuria or urinary frequency Musculoskeletal Musculoskeletal: Reports other Details: See history of present illness ; Denies arthralgias or myalgias Integumentary Reports other Details: See history of present illness ; Denies abscess or rash Neurologic Neurologic: Denies headache(s) or weakness Psychiatric Psychiatric: Denies anxiety, depression, suicidal ideation or suicidal thoughts Endocrine Endocrinology: Denies polydipsia, polyphagia or polyuria Allergic/Immunologic Allergic/Immunologic ED: Denies mouth swelling, tongue swelling or urticaria EXAM Physical Exam Const Vital Signs: 08/26/20 08:23 08/26/20 08:40 08/26/20 08:41 Temperature 97.6 F L Temperature Source Temporal Pulse Rate 75 Respiratory Rate 16 Respiratory Effort Normal Non-Labored Normal Non-Labored Respiratory Depth Normal Normal Respiratory Pattern Normal Normal Blood Pressure 159/79 H Blood Pressure Mean 105 Pulse Ox 96 Oxygen Delivery Method Room Air Room Air Oxygen Flow Rate (L/min) 98 Positive well nourished and well developed General Appearance ED: well developed HEENT Reports normocephalic, head/scalp atraumatic and moist mucous membranes HEENT Narrative: Patient has left periorbital contusion mostly over the superior aspect. There is a small superficial abrasion less than 1 cm over the inferior aspect. There is no palpable deformity. Extraocular motions are intact. No hyphema or subconjunctival hemorrhage seen. trauma Eyes PERRL and EOMs intact bilaterally Neck no lymphadenopathy, supple and no JVD Resp normal respiratory effort and clear to auscultation bilaterally Cardio regular rate, regular rhythm and no murmurs GI normal to inspection, nondistended, normoactive bowel sounds and non-tender Palpation: soft Back/Spine no CVA tenderness and normal ROM Extremity Extremity Narrative: Patient has slight tenderness to palpation just inferior and anterior to the left lateral malleolus. General Extremety ED: Negative for edema General Extremity: Negative for edema Neuro oriented x3 and CN's II-XII intact bilaterally Sensorium / Orientation: alert Motor Exam: strength 5/5 throughout Psych mental status grossly normal Mood & Affect: Negative for depressed or tearful Skin no rashes or lesions noted and no wounds MDM MDM MDM Narrative Medical decision making narrative: CT the brain was obtained by radiology reviewed by myself. This was negative for acute fracture or hemorrhage. My interpretation of the plain films of the left ankle is no acute fracture. Patient will be discharged home with supportive care. Return if worsening or concerns follow-up as needed Radiography Diagnostic Testing: Radiology Impression Brain CT 08/26/20 09:12 IMPRESSION: Chronic involutional changes of the brain. Electronically Signed: Juventino Mccormick MD at 9:30 EDT , Service support , Discharge Plan Triage Chief Complaint: Fall ED Provider: Max Nava Dx/Rx/DC Orders Clinical Impression: Contusion of periorbital region, left, Left ankle sprain Instructions: [place], ED Ankle Sprain (Adult) Prescriptions: No Action aspirin [Adult Low Dose Aspirin] 81 mg tablet,delayed release (DR/EC) 81 mg PO QDAY RF: 0 amlodipine 10 mg tablet 10 mg PO DAILY Qty: 90 RF: 3 metoprolol succinate 50 mg tablet extended release 24 hr 50 mg PO QDAY Qty: 90 RF: 3 Primary Care Provider: Leroy Reeves Referrals: [facility]GROUP OF PHYSICIANS] - As Needed (For Workmen's Comp.) Leroy Reeves, [Primary Care Provider] - As Needed Disposition Disposition: Home, Self Care
--- NOTE | 2020-08-26 09:12 | CT_ITS ---
STUDY: CT BRAIN WITHOUT CONTRAST REASON FOR EXAM: Female, 70 years old. Facial injury due to a fall. RADIATION DOSAGE (If Supplied By Facility): CTDIvol = ( 44.99 ) mGy, DLP = ( 762.36 ) mGycm TECHNIQUE: Transaxial CT imaging of the brain was performed without administration of intravenous contrast material. Individualized dose optimization techniques were used for this CT. COMPARISON: Comparison is made with prior study dated 11/09/2018. FINDINGS: Normal soft tissue structures. Normal calvarium. There is mild cerebral atrophy with widening of the extra-axial spaces and ventricular dilatation. Normal white matter tracts of the cerebral hemispheres. Normal basal ganglia and thalami. Normal brainstem. There is mild cerebellar atrophy. There is no intracranial hemorrhage. There are no findings of an acute ischemic infarction. Atherosclerotic calcification of the cavernous portions of the internal carotid arteries bilaterally. Normal visualized paranasal sinuses. CT/Brain/Head without Contrast IMPRESSION: Chronic involutional changes of the brain. Electronically Signed: Juventino Mccormick MD at 9:30 EDT , Service support ,
--- NOTE | 2020-08-26 09:24 | RAD_ITS ---
STUDY: X-RAY - LEFT ANKLE REASON FOR EXAM: Female, 70 years old. Pain following a fall. TECHNIQUE: 3 view(s) of the ankle. COMPARISON: None. FINDINGS: Normal visualized distal tibia and fibula. Normal medial and lateral malleoli. Normal tibiotalar articulation and ankle mortise. Normal visualized talus and calcaneus. The visualized subtalar, talonavicular, calcaneocuboid and tarsal articulations are normal. The soft tissue structures are unremarkable. RAD/Ankle min 3 Views IMPRESSION: Normal x-ray examination of the ankle. Electronically Signed: Juventino Mccormick MD at 9:39 EDT , Service support ,
[2020-08-26 10:04] VITALS: RESP 16
== END 2020-08-26 10:05 | disposition home or self-care (01) ==
LOC: ED 09:44
PROVIDERS: Emergency Provider Emergency Medicine; PCP Family Medicine
DX: S00.12XA Contusion of left eyelid and periocular area, initial encounter (principal); S93.402A Sprain of unspecified ligament of left ankle, initial encounter; S00.212A Abrasion of left eyelid and periocular area, initial encounter; W18.09XA Striking against other object with subsequent fall, initial encounter; Y93.01 Activity, walking, marching and hiking; Y92.9 Unspecified place or not applicable; I10 Essential (primary) hypertension; I34.1 Nonrheumatic mitral (valve) prolapse; M81.0 Age-related osteoporosis without current pathological fracture; Z79.82 Long term (current) use of aspirin; Z79.899 Other long term (current) drug therapy
CPT/HCPCS: 70450; 73610; 99284

== ENCOUNTER → 2021-08-30 | Outpatient (CLI) | payer BC, SELFPAY ==
[2021-08-30 07:28] LABS: Absolute Lymphocyte Count 1.62 X10^3/uL (0.83-4.51); Absolute Neutrophil Count 3.2 X10^3/uL (2.0-7.7); Basophil# 0.03 X10^3/uL; Basophil% 0.5 % (0-1); Eosinophils% 8.3 % (0-5); Hematocrit 46.9 % (37-47); Hemoglobin 14.7 g/dL (12.0-15.0); Lymphocyte # 1.62 X10^3/ul (0.83-4.51); Mean Corp Hgb Conc 31.3 g/dL (32-36); Mean Corpuscular Hgb 26.8 pg (27.0-32.0); Mean Corpuscular Volume 85.4 fL (81-99); Mean Platelet Vol. 10.9 fl (6.2-12.0); Monocyte# 0.59 X10^3/uL; Monocyte% 9.8 % (0-10); NRBC Flagged by Analyzer 0 % (0-5); Neutrophil # 3.23 X10^3/uL (2.7-7.7); Neutrophil % 53.9 % (47-70); Platelet Count 248 K/mm3 (150-450); RBC Distribution Width CV 13.5 % (11.6-14.6); RBC Distribution Width SD 42.5 fl (35.1-43.9); Red Blood Count 5.49 M/mm3 (4.2-5.4)
[2021-08-30 08:06] LABS: ALB/GLOB Ratio 0.9 RATIO (0.9-2.4); AST(SGOT) 22 U/L (15-37); Alanine Aminotransfer ALT/SGPT 28 U/L (13-56); Albumin, Serum 3.7 g/dL (3.2-5.0); Alkaline Phosphatase 67 U/L (45-117); Anion Gap 5 (5-15); BUN 14 mg/dL (7-18); BUN/Creat Ratio 14.3 RATIO (10-20); Calcium,Total 8.9 mg/dL (8.5-10.1); Chloride 107 mmol/L (98-107); Cholesterol 180 mg/dL (200); Creatinine, Serum 0.98 mg/dL (0.55-1.02); EST Glomerular Filtration Rate 59 mL/min (>60); Est Glom Filt Rate - Afr Amer 72 mL/min (>60); Globulin 3.9 g/dL (2.2-4.2); Glucose 106 mg/dL (74-106); High Density Lipoprotein 58 mg/dL; Potassium 4.3 mmol/L (3.5-5.1); Protein, Total 7.6 g/dL (6.4-8.2); Sodium Level 140 mmol/L (136-145); Triglycerides 74 mg/dL; Very Low Density Lipoprotein 15 mg/dL (5-40)
[2021-09-01 08:06] LABS: Vitamin D,25 Hydroxy 48.8 ng/mL
== END | disposition home or self-care (01) ==
LOC: LAB 06:59
PROVIDERS: PCP Family Medicine; Referring Provider Family Medicine; Visit Provider Family Medicine
DX: I10 Essential (primary) hypertension (principal); M81.0 Age-related osteoporosis without current pathological fracture; E55.9 Vitamin D deficiency, unspecified
CPT/HCPCS: 36415; 80053; 80061; 82306; 85025

== ENCOUNTER → 2021-09-05 | Outpatient (CLI) | payer BC, SELFPAY ==
--- NOTE | 2021-09-05 10:15 | RAD_ITS ---
EXAM: XR ABDOMEN, 1 VIEW CLINICAL INDICATION: KUB- RIGHT FLANK PAIN TECHNIQUE: Frontal supine view of the abdomen/pelvis. This report was created using Picket report generation technology. COMPARISON: None. FINDINGS: LOWER THORAX: No acute pathology. GASTROINTESTINAL TRACT: Stool throughout the colon. Non-obstructive. No bowel or stomach distention. ORGANS: Unremarkable as visualized. No organomegaly. No abnormal calcifications. BONES/JOINTS: No acute pathology. SOFT TISSUES: No acute pathology. RAD/Abdomen Single View IMPRESSION: Stool throughout the colon. Electronically Signed: Jamie Gee MD at 18:31 EDT ,
[2021-09-05 12:34] LABS: Absolute Lymphocyte Count 1.49 X10^3/uL (0.83-4.51); Absolute Neutrophil Count 3.8 X10^3/uL (2.0-7.7); Basophil# 0.04 X10^3/uL; Basophil% 0.6 % (0-1); Eosinophil# 0.46 X10^3/uL; Eosinophils% 7.2 % (0-5); Hematocrit 44.2 % (37-47); Hemoglobin 14.4 g/dL (12.0-15.0); Lymphocyte # 1.49 X10^3/ul (0.83-4.51); Lymphocyte % 23.2 % (19-41); Mean Corp Hgb Conc 32.6 g/dL (32-36); Mean Corpuscular Hgb 27.2 pg (27.0-32.0); Mean Corpuscular Volume 83.6 fL (81-99); Monocyte# 0.67 X10^3/uL; Monocyte% 10.4 % (0-10); NRBC Flagged by Analyzer 0 % (0-5); Neutrophil # 3.75 X10^3/uL (2.7-7.7); Neutrophil % 58.3 % (47-70); Platelet Count 236 K/mm3 (150-450); RBC Distribution Width CV 13.5 % (11.6-14.6); RBC Distribution Width SD 41.4 fl (35.1-43.9); Red Blood Count 5.29 M/mm3 (4.2-5.4); White Blood Count 6.4 K/mm3 (4.4-11.0)
[2021-09-05 12:48] LABS: AST(SGOT) 25 U/L (15-37); Alanine Aminotransfer ALT/SGPT 30 U/L (13-56); Albumin, Serum 3.8 g/dL (3.2-5.0); Alkaline Phosphatase 64 U/L (45-117); Anion Gap 5 (5-15); BUN 15 mg/dL (7-18); BUN/Creat Ratio 16.3 RATIO (10-20); Calcium,Total 9.5 mg/dL (8.5-10.1); Chloride 104 mmol/L (98-107); Creatinine, Serum 0.92 mg/dL (0.55-1.02); EST Glomerular Filtration Rate 64 mL/min (>60); Est Glom Filt Rate - Afr Amer 77 mL/min (>60); Globulin 3.8 g/dL (2.2-4.2); Glucose 104 mg/dL (74-106); Potassium 4.1 mmol/L (3.5-5.1); Protein, Total 7.6 g/dL (6.4-8.2); Sodium Level 138 mmol/L (136-145)
== END | disposition home or self-care (01) ==
LOC: MTLAB 10:14
PROVIDERS: PCP Family Medicine; Referring Provider Family Medicine; Visit Provider Family Medicine
DX: R10.9 Unspecified abdominal pain (principal)
CPT/HCPCS: 36415; 74018; 80053; 85025

== ENCOUNTER 2022-01-20 16:10 | Outpatient (CLI) | payer BC, SELFPAY ==
--- NOTE | 2022-01-20 16:12 | BI_ITS ---
MAMMOGRAPHY - BILATERAL SCREENING REASON FOR EXAM: Female, 71 years old. Routine annual screening examination. PERTINENT HISTORY: Non-contributory. TECHNIQUE: Digital bilateral breast christa (3D mammographic acquisition) in the CC and MLO projections. 2-D mediolateral oblique (MLO) and craniocaudad (CC) views of both breasts were obtained. CAD: Full Field Digital Mammography with Computer Added Detection was performed. COMPARISON: 08/22/2020, 04/23/2017. FINDINGS: Breast Composition: The breasts are extremely dense, which lowers the sensitivity of mammography. There are no dominant masses or suspicious calcifications. No other significant abnormalities are identified. There has been no significant change since the prior study. BI/SCRN MAMM (CAD)W/CHRISTA BILAT IMPRESSION: Stable bilateral screening mammogram. Yearly follow-up mammogram recommended. (A) ASSESSMENT CATEGORY: BIRADS Category 1: Negative. A letter regarding these results will be sent to the patient by the facility within 30 days. Approximately 10% of breast cancers are not detected by mammography. A normal mammogram should not delay biopsy of a clinically suspicious abnormality. Electronically Signed: Jadon Sage, at 11:15 EST ,
== END 2022-01-20 23:59 | disposition home or self-care (01) ==
LOC: OPBI 16:11
PROVIDERS: PCP Family Medicine; Referring Provider Family Medicine; Visit Provider Family Medicine
DX: Z12.31 Encounter for screening mammogram for malignant neoplasm of breast (principal)
CPT/HCPCS: 77063; 77067

== ENCOUNTER → 2022-04-02 | Outpatient (CLI) | payer BC, SELFPAY ==
--- NOTE | 2022-04-02 14:50 | ECHOD_ITS ---
Reason For Study: VALVE REPLACEMENT Procedure This was a 2D Doppler, Color Flow transthoracic echocardiogram. Exam performed in department. Left Ventricle Normal LV size. Left ventricular systolic function is normal. The estimated ejection fraction is 60 %. No regional wall motion abnormalities noted. Right Ventricle Normal RV size. Normal systolic function. Atria Normal left atrium. Normal right atrium. Mitral Valve Mild (1+) eccentric mitral valve insufficiency. Status post mitral valve repair. Status post mitral valve repair with annuloplasty ring. Tricuspid Valve Normal tricuspid valve. Mild tricuspid valve insufficiency. Aortic Valve Normal aortic valve. Trisinus/trileaflet aortic valve. Pulmonic Valve Normal pulmonic valve. Great Vessels Normal aortic root. The pulmonary artery is normal size. Normal inferior vena cava. Pericardium/Pleural No pericardial effusion. MMode/2D Measurements & Calculations LVIDd: 5.1 cm IVSd: 1.4 cm Ao root diam: 3.9 cm LVIDs: 3.5 cm LVPWd: 1.1 cm RVDd: 3.0 cm FS: 30.5 % LAV(MOD-sp4): 56.1 ml LVAd ap4: 26.8 cm2 SV(MOD-sp4): 57.4 ml LVLd ap4: 7.4 cm EDV(MOD-sp4): 77.9 ml EDV(sp4-el): 82.2 ml LVAs ap4: 12.2 cm2 LVLs ap4: 5.9 cm ESV(MOD-sp4): 20.6 ml ESV(sp4-el): 21.3 ml EF(MOD-sp4): 73.6 % EF(sp4-el): 74.1 % SV(sp4-el): 60.9 ml LA A4 area: 19.5 cm2 LA dimension(2D): 4.1 cm RA A4 area: 10.3 cm2 Time Measurements MV dec time: 0.24 sec Doppler Measurements & Calculations MV E max tavares: 107.5 cm/sec Lat Peak E' Tavares: 12.1 cm/sec Med Peak E' Tavares: 5.3 cm/sec MV A max tavares: 94.4 cm/sec E/E' lat: 8.9 E/E' med: 20.1 MV E/A: 1.1 MV V2 max: 117.0 cm/sec Ao V2 max: 121.4 cm/sec MV max P.5 mmHg MV dec slope: 457.9 cm/sec2 Ao max P.9 mmHg MV V2 mean: 68.5 cm/sec Ao V2 mean: 85.0 cm/sec MV mean P.2 mmHg Ao mean P.3 mmHg MV V2 VTI: 40.9 cm Ao V2 VTI: 31.3 cm AV (velocity ratio): 0.80 LV V1 max: 103.3 cm/sec MR max tavares: 441.0 cm/sec PA V2 max: 107.0 cm/sec LV V1 max P.3 mmHg MR max P.8 mmHg PA max PG (full): 2.5 mmHg LV V1 mean P.4 mmHg PA V2 mean: 77.7 cm/sec LV V1 mean: 72.6 cm/sec PA mean PG (full): 1.5 mmHg LV V1 VTI: 24.9 cm TR max tavares: 257.4 cm/sec TR max P.5 mmHg ECHO/Echo Complete Interpretation Summary Status post mitral valve repair. Normal LV size. Left ventricular systolic function is normal. The estimated ejection fraction is 60 %. Mild (1+) eccentric mitral valve insufficiency. Status post mitral valve repair with annuloplasty ring. Compared to previous study, the left ventricular systolic function is the same. . Ordering Physician: Ashwin Durbin Referring Physician: Ashwin Durbin Performed By: Shey Hewitt RCS
== END | disposition home or self-care (01) ==
LOC: CVS 14:49
PROVIDERS: PCP Family Medicine; Referring Provider Internal Medicine Cardiovascular Disease; Visit Provider Internal Medicine Cardiovascular Disease
DX: Z98.890 Other specified postprocedural states (principal); I10 Essential (primary) hypertension
CPT/HCPCS: 93306

== ENCOUNTER → 2022-08-19 | Outpatient (CLI) | payer BC, SELFPAY ==
--- NOTE | 2022-08-19 07:12 | MRI_ITS ---
EXAM: MR HEAD WITHOUT AND WITH INTRAVENOUS CONTRAST CLINICAL INDICATION: TANSIENT VISION LOSS, NORMAL EYE EXAM, ASSESS FOR STRUCTURAL -- NEUROLOGIC CAUSE TECHNIQUE: Multiplanar and multisequence MR images of the brain were obtained without and with intravenous contrast. CONTRAST: IV 15CC CLARISCAN COMPARISON: No relevant prior studies available. FINDINGS: BRAIN AND EXTRA-AXIAL SPACES: Periventricular small vessel ischemic change. Diffuse parenchymal atrophy. Posterior fossa structures are unremarkable. Basal cisterns are patent. No acute intracranial hemorrhage, mass effect or edema. No evidence of acute cortical stroke. No midline shift or hydrocephalus. SELLA: Unremarkable. Normal sella turcica, pituitary gland, infundibular stalk, optic chiasm and hypothalamus. AUDITORY SYSTEM: Unremarkable. The internal auditory canals are patent. BONES/JOINTS: Unremarkable. No discrete lytic or blastic abnormalities. SINUSES: Unremarkable as visualized. Clear. MASTOID AIR CELLS: Visualized sinuses and mastoid air cells are clear. ORBITS: Unremarkable as visualized. Both globes, extraocular muscles, optic nerves and retrobulbar fat appear unremarkable. VASCULATURE: Unremarkable as visualized. Normal flow voids in the major intracranial circulation. SOFT TISSUES: Unremarkable. No unusual enhancement. MRI/Brain W/WO Contrast IMPRESSION: 1. No evidence of acute intracranial pathology. 2. Diffuse involutional changes and chronic ischemic small vessel white matter disease. Electronically Signed: Nolan Grissom MD at 1:03 EDT ,
[2022-08-19 08:07] LABS: CREATININE FINGERSTICK 1.1 mg/dL (0.55-1.02)
== END | disposition home or self-care (01) ==
PROVIDERS: PCP Family Medicine; Referring Provider Family Medicine; Visit Provider Family Medicine
DX: H53.123 Transient visual loss, bilateral (principal); H53.2 Diplopia
CPT/HCPCS: 70553; A9575

== ENCOUNTER → 2022-08-20 | Outpatient (CLI) | payer BC, SELFPAY ==
[2022-08-20 16:40] LABS: Erythrocyte Sedimentation Rate 9 mm/hr (0-30)
== END | disposition home or self-care (01) ==
LOC: LAB 15:14
PROVIDERS: PCP Family Medicine; Visit Provider Family Medicine
DX: G45.3 Amaurosis fugax (principal)
CPT/HCPCS: 36415; 85652

== ENCOUNTER → 2022-08-27 | Outpatient (CLI) | payer BC, SELFPAY ==
--- NOTE | 2022-08-27 14:46 | CDU_ITS ---
Reason For Study: AMAUROSIS FUGAX Rt. Velocities/BP Lt. Velocities/BP Prox CCA 61.3/13.1 cm/sec. Prox CCA 65.7/15.7 cm/sec. Mid CCA 60.4/14.1 cm/sec. Mid CCA 61.0/19.5 cm/sec. Dist CCA 55.6/17.9 cm/sec. Dist CCA 61.0/18.5 cm/sec. Prox ICA 48.1/10.3 cm/sec. Prox ICA 56.6/16.5 cm/sec. Mid ICA 58.5/16.0 cm/sec. Mid ICA 93.0/23.7 cm/sec. Dist ICA 64.6/14.2 cm/sec. Dist ICA 80.9/25.9 cm/sec. Rt. ICA/CCA = 64.6/60.4=1.1. Lt. ICA/CCA = 93.0/61.0=1.5. Prox ECA 73.5/14.2 cm/sec. Prox ECA 81.6/11.0 cm/sec. Rt. Vert. 39.1/8.4 cm/sec. Lt. Vert. 29.2/7.5 cm/sec. Right Extracranial There is intimal thickening but no significant atherosclerotic plaque noted in the right common carotid artery. There is intimal thickening but no significant atherosclerotic plaque noted in the right internal carotid artery. There is no significant atherosclerotic plaque noted in the right external carotid artery. Antegrade flow is noted in the right vertebral artery. Left Extracranial There is intimal thickening but no significant atherosclerotic plaque noted in the left common carotid artery. There is heterogeneous, irregular atherosclerotic plaque noted in the left internal carotid artery. The left internal carotid artery is very tortuous. There is no significant atherosclerotic plaque noted in the left external carotid artery. Antegrade flow is noted in the left vertebral artery. Procedure Carotid Duplex [id number]. This is a Carotid Duplex examination using B-mode, color flow and specral Doppler. Exam performed in department. VL/Carotid Duplex Ultrasound Interpretation Summary No significant atherosclerotic plaque or stenosis noted in the right internal c arotid artery. Mild (<50%) stenosis left extracranial internal carotid. Flow within the vertebral a rteries is antegrade bilaterally. Ordering Physician: Leroy Reeves Referring Physician: Leroy Reeves Performed By: Marylou Alberts, ALLEN, RVT
== END | disposition home or self-care (01) ==
LOC: CVS 14:44
PROVIDERS: PCP Family Medicine; Referring Provider Family Medicine; Visit Provider Family Medicine
DX: I65.23 Occlusion and stenosis of bilateral carotid arteries (principal)
CPT/HCPCS: 93880

== ENCOUNTER → 2022-11-18 | Outpatient (CLI) | payer BC, SELFPAY ==
[2022-11-18 17:53] LABS: Creatinine, Serum 0.97 mg/dL (0.55-1.02); EST Glomerular Filtration Rate 60 mL/min (>60); Est Glom Filt Rate - Afr Amer 73 mL/min (>60)
== END | disposition home or self-care (01) ==
LOC: LAB 16:16
PROVIDERS: PCP Family Medicine; Referring Provider Psychiatry & Neurology Neurology; Visit Provider Psychiatry & Neurology Neurology
DX: G45.3 Amaurosis fugax (principal); R26.0 Ataxic gait; H53.2 Diplopia
CPT/HCPCS: 36415; 82565

== ENCOUNTER → 2023-03-27 | Outpatient (CLI) | payer MEDICARE, OTHER, SELFPAY ==
--- OUTSIDE RECORDS SUMMARY | 2023-03-27 11:55 | XMS RPT_ITS | CCD ---
Author Name Unknown Address [address] [place] [address] Organization [facility] Care Team Providers Care Law Office Assistant Name Role Phone Claribel Washington RN Unavailable Unavailable Unavailable Primary Care Provider UnavailBebe Covington Primary Care Provider [phone] BEBE REEVES Primary Care Unavailable LIGIA KU Attending Unavailable BEBE REEVES Primary Care Unavailable HAVEN PONCE Attending Unavailable HAVEN PONCE Attending Unavailable BEBE REEVES Referring Unavailable BEBE REEVES Primary Care Unavailable HAVEN PONCE Referring Unavailable HAVEN PONCE Attending Unavailable BEBE REEVES Primary Care Unavailable BEBE REEVES Primary Care Unavailable LIGIA KU Attending Unavailable Allergies Allergy Classification Reported Allergen(s) Allergy Type Date of Onset Reaction(s) Facility (3 sources) NKDA drug allergy 10-28-2012 None [facility] Work Phone: Medications Current Medications Medication Drug Class(es) Dates Sig (Normalized) Sig (Original) alendronic acid 70 mg oral tablet (20 sources) Bisphosphonate Start: 09-21-2022 take 1 tablet by mouth every week alendronate (Fosamax) 70 MG tablet TAKE 1 TABLET BY MOUTH EVERY WEEK 30 MINUTES BEFORE THE FIRST FOOD, BEVERAGE, OR MEDICINE OF THE DAY 0 09/21/2022 Active Completed/Discontinued Medications Medication Drug Class(es) Dates Sig (Normalized) Sig (Original) albuterol 0.83 mg/ml inhalant solution (2 sources) beta2-Adrenergic Agonist Start: 07-02-2011 End: 10-28-2012 ALBUTEROL SULFATE NEBU 90 Mcg/inh inhale 2 puffs every 6 hours as needed ALBUTEROL [facility]UL[facility]ATE [facility] [id number] Ashwin Durbin MD amoxicillin 500 mg oral tablet (3 sources) Penicillin-class Antibacterial Start: 11-25-2015 take 4 tablets by mouth every hour AMOXICILLIN 500 MG TABS 4 tablets by mouth 1 hr prior to procedure AMOXICILLIN [id number] Ashwin Durbin MD Problems Active Problems Problem Classification Problem Date Documented Date Episodic/Chronic Blindness and vision defects (16 sources) Diplopia; Translations: [Diplopia] Onset: 10-15-2022 10-15-2022 Episodic Essential hypertension (1 source) Hypertensive disorder; Translations: [Essential (primary) hypertension] Onset: 02-15-2014 02-15-2014 Chronic Headache; including migraine (6 sources) Migraine aura without headache ; Translations: [Migraine with aura, not intractable, without status migrainosus] Onset: 03-23-2023 02-02-2023 Chronic Heart valve disorders (3 sources) Nonrheumatic mitral (valve) insufficiency; Translations: [Mitral valve regurgitation] Onset: 10-28-2012 11-02-2012 Chronic Osteoporosis (1 source) Osteoporosis; Translations: [Osteoporosis] Onset: 02-15-2014 02-15-2014 Chronic Other and ill-defined cerebrovascular disease (2 sources) Small vessel cerebrovascular disease; Translations: [Cerebrovascular disease, unspecified] 03-23-2023 Chronic Other and ill-defined cerebrovascular disease (3 sources) Cerebral atherosclerosis; Translations: [Cerebral atherosclerosis] Onset: 03-23-2023 03-23-2023 Chronic Other and ill-defined cerebrovascular disease (2 sources) Cerebrovascular disease, unspecified; Translations: [Cerebrovascular disease, unspecified] Onset: 03-23-2023 Chronic Other and ill-defined cerebrovascular disease (1 source) Cerebral atherosclerosis; Translations: [Cerebral atherosclerosis] Onset: 03-23-2023 Chronic Other nervous system disorders (4 sources) Abnormal gait; Translations: [Unspecified abnormalities of gait and mobility] 01-04-2023 Episodic Other nervous system disorders (2 sources) Unspecified abnormalities of gait and mobility; Translations: [Unspecified abnormalities of gait and mobility] Onset: 01-04-2023 Episodic Pulmonary heart disease (1 source) Pulmonary hypertension; Translations: [Other secondary pulmonary hypertension] Onset: 11-02-2012 11-02-2012 Chronic Transient cerebral ischemia (12 sources) Amaurosis fugax; Translations: [Amaurosis fugax] Onset: 10-15-2022 10-15-2022 Chronic Unclassified (1 source) Screening for malignant neoplasm of breast ; Translations: [Other specified health status] Onset: 02-15-2014 02-15-2014 Unclassified (1 source) Adult health examination ; Translations: [Encounter for general adult medical examination without abnormal findings] Onset: 02-15-2014 02-15-2014 Unclassified (1 source) Screening for malignant neoplasm of colon ; Translations: [Encounter for screening for malignant neoplasm of colon] Onset: 02-15-2014 02-15-2014 Unclassified (1 source) Screening for malignant neoplasm of cervix ; Translations: [Encounter for screening for malignant neoplasm of cervix] Onset: 02-15-2014 02-15-2014 Past or Other Problems Problem Classification Problem Date Documented Da te Episodic/Chronic Abdominal pain (2 sources) Generalized abdominal pain; Translations: [Stomach cramps] Onset: 07-16-2014 07-16-2014 Episodic Malaise and fatigue (1 source) Fatigue; Translations: [Other fatigue] Onset: 07-02-2011 07-02-2011 Episodic Nonspecific chest pain (1 source) Chest discomfort; Translations: [Other chest pain] Onset: 07-07-2011 07-07-2011 Episodic Other aftercare (1 source) Long-term (current) use of other medications; Translations: [Long-term (current) use of other medications] Onset: 11-02-2012 11-02-2012 Episodic Other gastrointestinal disorders (2 sources) Diarrhea; Translations: [Dysphagia] Onset: 07-16-2014 07-16-2014 Episodic Other lower respiratory disease (3 sources) Lung mass; Translations: [Disorder of lung] Onset: 11-07-2012 08-16-2015 Episodic Other nervous system disorders (7 sources) Ataxic gait; Translations: [Ataxic gait] Onset: 10-15-2022 10-15-2022 Episodic Other nervous system disorders (1 source) Ataxic gait; Translations: [Ataxic gait] Onset: 10-15-2022 Episodic Other nutritional; endocrine; and metabolic disorders (1 source) Body mass index (BMI) 26.0-26.9, adult; Translations: [Body mass index (BMI) 26.0-26.9, adult] Onset: 03-20-2014 03-20-2014 Episodic Unclassified (1 source) Insomnia; Translations: [Psychophysiologic insomnia] Onset: 02-15-2014 02-15-2014 Episodic Unclassified (1 source) Pneumococcal vaccination ; Translations: [Encounter for immunization] Onset: 05-02-2015 Resolved: 05-05-2015 05-02-2015 Results Test Name Value Interpretation Reference Range Facil ity Vital Signs Date Time Vital Sign Value Performing Clinician Faci lity 03-23-2023 13:48-0500 Body height 167.6 cm Ligia Mosss OFFICE EQUIPMENT TECHNICIAN - HEALTH OFFICER Work Phone: [employer] 03-23-2023 13:48-0500 Body mass index (BMI) [Ratio] 29.44 kg/m2 Ligia Mosss OFFICE EQUIPMENT TECHNICIAN - HEALTH OFFICER Work Phone: [employer] 03-23-2023 13:48-0500 Body weight 82.74 kg Ligia Mosss OFFICE EQUIPMENT TECHNICIAN - HEALTH OFFICER Work Phone: [employer] 03-23-2023 13:48-0500 Diastolic blood pressure 78 mm[Hg] Ligia Mosss OFFICE EQUIPMENT TECHNICIAN - HEALTH OFFICER Work Phone: [employer] 03-23-2023 13:48-0500 Heart rate 69 /min Ligia Mosss OFFICE EQUIPMENT TECHNICIAN - HEALTH OFFICER Work Phone: [employer] 03-23-2023 13:48-0500 Systolic blood pressure 131 mm[Hg] Ligia Mosss OFFICE EQUIPMENT TECHNICIAN - HEALTH OFFICER Work Phone: [employer] 02-02-2023 13:49-0500 Body mass index (BMI) [Ratio] 29.21 kg/m2 Ligia Mosss OFFICE EQUIPMENT TECHNICIAN - HEALTH OFFICER Work Phone: [employer] 02-02-2023 13:49-0500 Body weight 82.1 kg Ligia Ku OFFICE EQUIPMENT TECHNICIAN - HEALTH OFFICER Work Phone: [employer] 02-02-2023 13:49-0500 Diastolic blood pressure 75 mm[Hg] Ligiacornelia Ku OFFICE EQUIPMENT TECHNICIAN - HEALTH OFFICER Work Phone: [facility] [employer] 02-02-2023 13:49-0500 Heart rate 78 /min Ligia Ku OFFICE EQUIPMENT TECHNICIAN - HEALTH OFFICER Work Phone: [facility] [employer] 02-02-2023 13:49-0500 Systolic blood pressure 124 mm[Hg] Ligia Ku OFFICE EQUIPMENT TECHNICIAN - HEALTH OFFICER Work Phone: [facility] [employer] 01-04-2023 13:14-0500 Body height 167.6 cm Haven Ponce MD Work Phone: [facility] [employer] 01-04-2023 13:14-0500 Body mass index (BMI) [Ratio] 28.57 kg/m2 Haven Ponce MD Work Phone: [facility] [employer] 01-04-2023 13:14-0500 Body weight 80.29 kg Haven Ponce MD Work Phone: [facility] [employer] 01-04-2023 13:14-0500 Diastolic blood pressure 83 mm[Hg] Haven Ponce MD Work Phone: [facility] [employer] 01-04-2023 13:14-0500 Heart rate 65 /min Haven Ponce MD Work Phone: [facility] [employer] 01-04-2023 13:14-0500 Systolic blood pressure 145 mm[Hg] Haven Ponce MD Work Phone: [facility] [employer] 10-15-2022 14:25-0400 Body height 167.6 cm Haven Ponce MD Work Phone: [facility] [employer] 10-15-2022 14:25-0400 Body mass index (BMI) [Ratio] 28.25 kg/m2 Haven Ponce MD Work Phone: [facility] [employer] 10-15-2022 14:25-0400 Body weight 79.38 kg Haven Ponce MD Work Phone: [facility] [employer] 10-15-2022 14:25-0400 Diastolic blood pressure 74 mm[Hg] Haven Ponce MD Work Phone: [facility] [employer] 10-15-2022 14:25-0400 Heart rate 63 /min Haven Ponce MD Work Phone: [facility] 10-15-2022 14:25-0400 Systolic blood pressure 147 mm[Hg] Haven Ponce MD Work Phone: [facility] [employer] 03-17-2016 15:04-0500 BMI (Body Mass Index) 24.31 kg/m2 Claribel Washington RN [facility] Work Phone: 03-17-2016 15:04-0500 BP Diastolic 60 mm[Hg] Claribel Washington RN [facility] Work Phone: 03-17-2016 15:04-0500 BP Systolic 120 mm[Hg] Claribel Washington RN [facility] Work Phone: 03-17-2016 15:04-0500 BSA (Body Surface Area) 1.8 m2 Claribel Washington RN [facility] Work Phone: 03-17-2016 15:04-0500 Pulse (Heart Rate) 60 /min Claribel Washington RN [facility] Work Phone: 03-17-2016 15:04-0500 Respiratory Rate 20 /min Claribel Washington RN [facility] Work Phone: 03-17-2016 15:04-0500 Weight 69.36 kg Claribel Washington RN [facility] Work Phone: 06-03-2015 13:42-0400 Body Temperature 97.9 [degF] Claribel Washington RN [facility] Work Phone: 06-03-2015 13:42-0400 Pulse Oximetry 95 % Claribel Washington RN [facility] Work Phone: 02-15-2014 16:26-0500 Height 168.91 cm Claribel Washington RN [facility] Work Phone: Encounters Encounter Date Encounter Type Care Provider Facility Start: 03-23-2023 End: 03-23-[address] [facility] Start: 03-23-2023 End: 03-23-2023 Office outpatient visit 25 minutes Ligia Ku OFFICE EQUIPMENT TECHNICIAN - HEALTH OFFICER Work Phone: [facility] Procedures Date Procedure Procedure Detail Performing Clinician Start: 11-23-2022 Ct angiography head w/contrast/noncontrast Haven Ponce MD Work Phone: Start: 01-20-2022 Mammography Haven Ponce MD Work Phone: Start: 03-20-2016 End: 03-27-2016 Echocardiography Ashwin Durbin MD Start: 03-17-2016 End: 03-17-2016 R[employer]F SHING[employer]ER Ashwin Durbin MD Start: 03-17-2016 End: 03-17-2016 Follow Up Appt 1 year Ashwin Durbin MD Start: 09-05-2015 End: 09-06-2015 Referral to respiratory physician Bebe Reeves DO Work Phone: Start: 08-23-2015 End: 03-27-2016 Pet image w/ct, skull-thigh Bebe patton DO Work Phone: Start: 08-20-2015 End: 03-27-2016 Pet image w/ct, full body Bebe Le n DO Work Phone: Start: 08-16-2015 End: 08-19-2015 *CBC with Differential Bebe Reeves D O Work Phone: Start: 08-16-2015 End: 08-19-2015 *CMP Complete Metabolic Panel Bebe Concepcion amishaabdi DO Work Phone: Start: 08-16-2015 End: 08-19-2015 aPTT Bebe Reeves DO Work Phone: Start: 08-16-2015 End: 08-19-2015 C reactive protein (hsCRP) Bebe rivero DO Work Phone: Start: 08-16-2015 End: 08-19-2015 Coagulation factor induced.INR assay in platelet poor plasma Bebe Reeves DO Work Phone: Start: 08-16-2015 End: 03-27-2016 other Bebe Reeves DO Work Phone: Start: 07-26-2015 End: 03-27-2016 Ct thorax w/o dye Bebe Reeves DO Work Phone: Start: 05-02-2015 End: 05-03-2015 Referral to reel assembler Bebe Melgar DO Work Phone: Start: 03-19-2015 End: 03-19-2015 RICHARD Durbin MD Start: 03-19-2015 End: 03-19-2015 Follow Up Appt 1 year Ashwin Durbin MD Start: 07-16-2014 End: 07-17-2014 *CBC with Differential Kinga Munson, DO Work Phone: Start: 07-16-2014 End: 07-17-2014 *CMP Complete Metabolic Panel Kinga dennis, DO Work Phone: Start: 07-16-2014 End: 07-17-2014 C reactive protein (hsCRP) Kinga Munson, DO Work Phone: Start: 07-16-2014 End: 03-27-2016 Ct abdomen&pelvis w/contrast Kinga Christensen s, DO Work Phone: Start: 07-16-2014 End: 07-17-2014 Erythrocyte sedimentation rate Kinga sadler, DO Work Phone: Start: 07-16-2014 End: 03-27-2016 Surgery Referral Kinga Munson, DO Work Phone: Start: 07-16-2014 End: 07-17-2014 Thyroid stimulating hormone (TSH) Kinga Munson, DO Work Phone: Start: 03-20-2014 End: 03-20-2014 RICHARD Durbin MD Start: 03-20-2014 End: 03-21-2014 Documentation of current medications Ashwin Durbin MD Start: 03-20-2014 End: 03-20-2014 Follow Up Appt 1 year Ashwin Durbin MD Start: 02-15-2014 End: 02-19-2014 25-Hydroxyvitamin D2+25-Hydroxyvitamin D3 [Mass/volume] in Serum or Plasma Bebe Reeves [employer] Work Phone: Start: 02-15-2014 End: 03-27-2016 Dexa Scan [employer] [employer] Work Phone: Start: 02-15-2014 End: 03-27-2016 Mammogram, Screening, both breasts Bebe Reeves [employer] Work Phone: Start: 03-21-2013 End: 03-27-2016 Chest x-ray Ashwin Durbin MD Start: 03-21-2013 End: 03-27-2016 ROOF SHINGLER Ashwin Durbin MD Start: 03-21-2013 End: 03-27-2016 Follow Up Appt 1 year Ashwin Durbin MD Start: 12-08-2012 End: 03-27-2016 Cardiac Rehab Ashwin Durbin MD Start: 12-08-2012 End: 12-08-2012 RICHARD Durbin MD Start: 12-08-2012 End: 03-27-2016 Echocardiography Ashwin Durbin MD Start: 12-08-2012 End: 12-08-2012 Electrocardiogram, complete Ashwin Saez i, MD Start: 12-08-2012 End: 12-08-2012 Follow Up Appt 3 months Kasie Maher Start: 11-07-2012 End: 03-27-2016 RICHARD Durbin MD Start: 11-07-2012 End: 03-27-2016 Follow Up Appt 2 months Kasie Maher Start: 10-28-2012 End: 10-28-2012 RICHARD Durbin MD Start: 10-28-2012 End: 10-28-2012 Follow Up Appt 6 weeks Ashwin Durbin MD Start: 07-07-2011 End: 07-07-2011 Electrocardiogram, complete Ashwin Saez i, MD Start: 07-07-2011 End: 10-24-2012 Follow Up Appt Other Ashwin Durbin MD Start: 07-07-2011 End: 08-12-2011 Stress Echocardiogram (treadmill) Ashwin Durbin MD Plan of Treatment Date Care Activity Detail Author Start: 04-29-2023 End: 04-29-2023 Telemedicine consultation with patient 04/29/2023 7:30 AM EST Telemedicine [facility] [address] [facility] [address] [place] [id number] Ligia Ku, JAYDE - HEALTH OFFICER [address] [facility] [place] [address] [facility] Start: 03-23-2023 End: 03-23-2024 Lipid 1996 panel - Serum or Plasma Lipid panel Lab Routine Small vessel disease, cerebrovascular Cerebral atherosclerosis Expected: 03/23/2023 (Approximate), Expires: 03/23/2024 [facility] Work Phone: Immunizations Immunization Date Immunization Notes Care Provider Fa cili 12-11-2020 influenza virus vaccine, unspecified formulation Haven Ponce MD Work Phone: [facility] 05-02-2015 pneumococcal conjuga te vaccine, 7 valent Claribel Washington RN [facility] Work Phone: 05-02-2015 [id number] Claribel Washington RN [facility] Work Phone: Payers Date Payer Category Payer Medicare MEDICARE MEDICAR E PART A AND B [id number] 2023-Present [address] [place] [address] Medicare [id number] 2023 Medicare [id number] 2023 Unknown [id number] 2021 Unknown [id number] 2021 Unknown [id number] Social History Date Type Detail Facility Tobacco smoking stat [facility] Tobacco smoking consumption unknown [facility] Start: 1950 Sex Assigned At Not on file [facility] Start: 10-15-2022 End: 02-02-2023 Gender identity Not on file [facility] Start: 10-15-2022 Tobacco smoking stat [facility] Never smoked tobacco [facility] Start: 10-15-2022 Tobacco use and exposure Smokeless t obacco non-user [facility] Start: 10-15-2022 End: 03-23-2023 Alcohol intake Lifetime non-drinker (finding) [facility] Start: 10-05-2022 End: 11-23-2022 Exposure to SARS-CoV-2 (event) Not sure [facility] Start: 10-15-2022 End: 02-02-2023 History of Social function [facility] Clinical Notes 09-02-2022 to 03-23-2023 JAYDE Whitman CNP - 03/23/2023 2:00 PM ESTPatient InstructionsTelephone Encounter - Grace Sanz MA - 02/03/2023 8:34 AM JAYDE Erazo CNP - 02/02/2023 2:00 PM EST Note Date & Type Note Facility 03-23-2023 History of Presen t illness Narrative Visit type: Established Patient Reason for Visit: Follow-up and Migraine Assessment and Plan 1. Migraine aura without headache 2. Transient visual loss of both eyes 3. Small vessel disease, cerebrovascular Subjective HPI: Follow up from visual disturbance she experienced in No new issues or concerns; no new episodes of vision loss/disturbance Saw cardiology this last week: stated she said everything seemed fine , did order a 14 day phototypesetting equipment monitor; will get that within 5 days. (she didn't follow through with my order for that); Lipid levels were not ordered Patient needs to schedule with PCP as it has been over a year since last visit [facility] - small vessel disease. Started ASA 81mg CTA results 11/23/22: There is no evidence of dissection. Impression: 1. CTA EXTRACRANIAL --- RIGHT CAROTID SYSTEM-- calcified plaquing with maximum diameter narrowing of 20-30% LEFT CAROTID SYSTEM-- calcified plaquing with maximum diameter narrowing of 40-50% VERTEBRAL ARTERIES --patent bilaterally with proximal tortuosity without stenosis 2. CTA INTRACRANIAL --- There is no evidence of aneurysm or significant intracranial stenosis. Ophthalmology exam was unremarkable; probable visual migraine REVIEW OF SYSTEMS: Review of Systems Constitutional: Negative. HENT: Negative. Eyes: Positive for visual disturbance (last episode was November). Respiratory: Negative. Cardiovascular: Negative. Gastrointestinal: Negative. Endocrine: Negative. Genitourinary: Negative. Skin: Negative. Allergic/Immunologic: Negative. Neurological: Negative. Hematological: Negative. Psychiatric/Behavioral: Negative. No Known Allergies Outpatient Medications Prior to Visit Medication Sig Dispense Refill alendronate (Fosamax) 70 MG tablet TAKE 1 TABLET BY MOUTH EVERY WEEK 30 MINUTES BEFORE THE FIRST FOOD, BEVERAGE, OR MEDICINE OF THE DAY amLODIPine (Norvasc) 10 MG tablet Take 10 mg by mouth daily. aspirin 81 MG EC tablet Take 81 mg by mouth daily. metoprolol succinate XL (Toprol-XL) 50 MG 24 hr tablet Take 50 mg by mouth daily. Multiple Vitamins-Minerals (VITAMIN D3 COMPLETE PO) Take by mouth. No facility-administered medications prior to visit. Past Medical History: Diagnosis Date HL (hearing loss) Hypertension Social History Tobacco Use Smoking status: Never Smokeless tobacco: Never Substance Use Topics Alcohol use: Never Past Surgical History: Procedure Laterality Date CARDIAC SURGERY CATARACT EXTRACTION Bilateral TONSILLECTOMY Family History Problem Relation Name Age of Onset Asthma Mother Arthritis Father Cancer Father Asthma Sister Thyroid cancer Brother No Known Problems Brother No Known Problems Maternal Grandmother No Known Problems Maternal Grandfather No Known Problems Paternal Grandmother No Known Problems Paternal Grandfather No Known Problems Daughter Hypertension Son Objective Vitals: BP 131/78 (BP Location: Right arm, Patient Position: Sitting, BP Cuff Size: Adult) Pulse 69 Ht 5' 6 (1.676 m) Wt 182 lb 6.4 oz (82.7 kg) BMI 29.44 kg/m General Appearance: Patient is in no apparent distress. Head is normocephalic, atraumatic Cardiovascular: Regular rate and rhythm. No heart murmurs. No carotid bruit Neurologic: Mentation: Alert and oriented x [address], [address] and time. Speech and Language: Speech and language normal Concentration and Attention: Concentration normal Memory: Memory normal Fund of Knowledge: Fund of knowledge normal Cranial Nerves: II, III, IV, V, , VII, VIII, IX, X, XI, XII examined and were intact. Motor: Strength: Strength 5 out of 5 with normal tone Alternating Movements: Normal Cogwheel Rigidity: None Tone: Tone is normal Tremor / Involuntary Movements: None Deep Tendon Reflexes: 1 out of 4 symmetrical in all four limbs. Coordination: Normal coordination upper and lower extremities Gait and Station: Station is normal. Gait is normal Data Reviewed and Summarized DIAGNOSTIC TESTING CBC: No results found for: WBC , RBC , HGB , HCT , MCV , MCH , MCHC , RDW , PLT , MPV CMP: No results found for: NA , K , CL , CO2 , BUN , CREATININE , AGRATIO , LABGLOM , GLUCOSE , GLU , PROT , CALCIUM , BILITOT , ALKPHOS , AST , ALT BMP: No results found for: NA , K , CL , CO2 , BUN , CREATININE , CALCIUM , LABGLOM , GLUCOSE , GLU PT/INR: No results found for: PROTIME , INR PTT: No results found for: APTT , PTT [APTT} FLP: No results found for: CHLPL , TRIG , HDL , LDLCALC , LDLDIRECT TSH: No results found for: TSH VITAMIN B12: No results found for: [id number] No results found for: PHENYTOIN , PHENOBARB , VALPROATE , CBMZ No components found for: TOPIRA @RESULTINGLABINFO@ No results found for: LEVETIRACETA , FERRITIN , CRP , TEJINDER , ANCA No results found for: DANII , IMMUNOGLOBUL , OLIGOBANDS No results found for: [id number] , HEPCAB No results found for: CRP , ANATITER , ANCA FERRITIN: No results found for: FERRITIN ---- CTA head neck angio w and wo IV contrast Narrative: Patient Name: PERRY GOSS : 1950 [facility]#: [id number] Exam Date/Time: 11/23/2022 13:42 Procedure: CT HEAD NECK ANGIO W AND WO IV CONTRAST Ordering Provider: PONCE JAMES Reason For Exam: Vision loss, binocular Reasons for examination: Vision loss. CT angiographic studies of the extracranial and intracranial vessels was performed following the acquisition of high resolution helical CT data during bolus contrast infusion. The data set was then post process on the [employer] workstation, with reconstructed 3D volume rendered CT angiographic renderings of the extracranial vessels. Vessel measurements of any carotid stenosis use the technique of measuring the internal carotid artery/ distal common carotid artery/ internal carotid artery above the stenosis by NASCET criteria. Dose reduction was employed with automated exposure control. There is patent flow in the right and left common carotid arteries. There is patent flow in the right and left cervical vertebral arteries. The right carotid bifurcation demonstrates atherosclerotic changes without severe stenosis. There is no ulceration. There is patent flow in the upper cervical right internal carotid artery. The left carotid bifurcation demonstrates atherosclerotic changes without severe stenosis. There is no ulceration. There is patent flow in the upper cervical left internal carotid artery. There is no evidence of dissection. Impression: 1. CTA EXTRACRANIAL --- RIGHT CAROTID SYSTEM-- calcified plaquing with maximum diameter narrowing of 20-30% LEFT CAROTID SYSTEM-- calcified plaquing with maximum diameter narrowing of 40-50% VERTEBRAL ARTERIES --patent bilaterally with proximal tortuosity without stenosis 2. CTA INTRACRANIAL --- There is no evidence of aneurysm or significant intracranial stenosis. origin left posterior cerebral artery, patent anterior communicating artery and right posterior communicating artery, calcified plaquing carotid siphons without stenosis. 3. Degenerated disc at C5-C6 and C6-C7. Bilateral apical pleural thickening with upper lung parenchymal probable scarring bilaterally, right greater than left Heterogeneous thyroid gland without large nodules. Report Dictated on Electronically Signed By: Dilan Rodriguez MD Electronically Signed Date/Time: 11/23/2022 5:44 PM EDT @LASTAPPOINTMENTTHISPROV@ IMPRESSION and PLAN: Problem List Items Addressed This Visit None Visit Diagnoses Migraine aura without headache - Primary Transient visual loss of both eyes Small vessel disease, cerebrovascular No new episodes since last ; will follow Same as avobe Get lipid panel; continue with ASA therapy; Follow with PCP No problem-specific Assessment & Plan notes found for this encounter. JAYDE Whitman CNP I spent 30 minutes caring for this patient today, reviewing labs, records, seeing the patient, documenting in the record and arranging for studies. Electronically signed by @CHRISTIANODNR@ on @TDNR@ at @NOWNR@ documented in this encounter [facility] 03-23-2023 Instructions JAYDE Whitman CNP - 03/23/2023 2:00 PM EST Schedule with primary care physician documented in this encounter [facility] 02-03-2023 Telephone encounter Note Office notes have been faxed [facility] 02-03-2023 Miscellaneous Notes Office notes have been faxed Please send today's chart note to Dr. Christopher [facility] Cigar Making Supervisor [phone]. Thank you documented in this encounter [facility] 02-02-2023 Telephone encounter Note Please send today's chart note to Dr. Christopher Ramakrishna Cigar Making Supervisor [phone]. Thank you [facility] 02-02-2023 History of Presen t illness Narrative Visit type: Established Patient Reason for Visit: Follow-up, Loss of Vision, and Gait Problem Assessment and Plan 1. Migraine aura without headache 2. Gait disturbance 3. Transient visual loss of both eyes 4. TIA (transient ischemic attack) - Cardiac event monitor (30 days) Subjective HPI: Pt presented in September with c/o visual disturbances - 5-10 min episodes of binocular Va loss , wavy lines, and vertical diplopia; denied LOC or headache. Also c/o gait instability. MRI [place] - small vessel disease. Started ASA 81mg CTA results below Referral to ophthalmology - exam unremarkable; probable visual migraine No new issues since last visit; no visual disturbance episodes since last visit. Sees her end frazer in [place]. Denies feeling heart palpitations Will discuss heart monitor Will have lipid levels drawn with cardiology No new gait issues recently; states always has walking problems . No recent falls. REVIEW OF SYSTEMS: Review of Systems Constitutional: Negative. HENT: Negative. Eyes: Positive for visual disturbance. Respiratory: Negative. Cardiovascular: Negative. Gastrointestinal: Negative. Endocrine: Negative. Genitourinary: Negative. Musculoskeletal: Negative. Skin: Negative. Allergic/Immunologic: Negative. Neurological: Negative. Hematological: Negative. Psychiatric/Behavioral: Negative. No Known Allergies Outpatient Medications Prior to Visit Medication Sig Dispense Refill alendronate (Fosamax) 70 MG tablet TAKE 1 TABLET BY MOUTH EVERY WEEK 30 MINUTES BEFORE THE FIRST FOOD, BEVERAGE, OR MEDICINE OF THE DAY amLODIPine (Norvasc) 10 MG tablet Take 10 mg by mouth daily. aspirin 81 MG EC tablet Take 81 mg by mouth daily. metoprolol succinate XL (Toprol-XL) 50 MG 24 hr tablet Take 50 mg by mouth daily. Multiple Vitamins-Minerals (VITAMIN D3 COMPLETE PO) Take by mouth. No facility-administered medications prior to visit. Past Medical History: Diagnosis Date HL (hearing loss) Hypertension Social History Tobacco Use Smoking status: Never Smokeless tobacco: Never Substance Use Topics Alcohol use: Never Past Surgical History: Procedure Laterality Date CARDIAC SURGERY CATARACT EXTRACTION Bilateral TONSILLECTOMY Family History Problem Relation Name Age of Onset Asthma Mother Arthritis Father Cancer Father Asthma Sister Thyroid cancer Brother No Known Problems Brother No Known Problems Maternal Grandmother No Known Problems Maternal Grandfather No Known Problems Paternal Grandmother No Known Problems Paternal Grandfather No Known Problems Daughter Hypertension Son Objective Vitals: BP 124/75 (BP Location: Right arm) Pulse 78 Wt 181 lb (82.1 kg) BMI 29.21 kg/m General Appearance: Patient is in no apparent distress. Head is normocephalic, atraumatic Cardiovascular: Regular rate and rhythm. No heart murmurs. No carotid bruit Neurologic: Mentation: Alert and oriented x 3 to person, place and time. Speech and Language: Speech and language normal Concentration and Attention: Concentration normal Memory: Memory normal Fund of Knowledge: Fund of knowledge normal Cranial Nerves: II, III, IV, V, , VII, VIII, IX, X, XI, XII examined and were intact. Motor: Strength: Strength 5 out of 5 with normal tone Alternating Movements: Normal Cogwheel Rigidity: None Tone: Tone is normal Tremor / Involuntary Movements: None Deep Tendon Reflexes: 1 out of 4 symmetrical in all four limbs. Coordination: Normal coordination upper and lower extremities Gait and Station: Station is normal. Gait is normal Data Reviewed and Summarized DIAGNOSTIC TESTING CBC: No results found for: WBC , RBC , HGB , HCT , MCV , MCH , MCHC , RDW , PLT , MPV CMP: No results found for: NA , K , CL , CO2 , BUN , CREATININE , AGRATIO , LABGLOM , GLUCOSE , GLU , PROT , CALCIUM , BILITOT , ALKPHOS , AST , ALT BMP: No results found for: NA , K , CL , CO2 , BUN , CREATININE , CALCIUM , LABGLOM , GLUCOSE , GLU PT/INR: No results found for: PROTIME , INR PTT: No results found for: APTT , PTT [APTT} FLP: No results found for: CHLPL , TRIG , HDL , LDLCALC , LDLDIRECT TSH: No results found for: TSH VITAMIN B12: No results found for: [id number] No results found for: PHENYTOIN , PHENOBARB , VALPROATE , CBMZ No components found for: TOPIRA @RESULTINGLABINFO@ No results found for: LEVETIRACETA , FERRITIN , CRP , TEJINDER , ANCA No results found for: DANII , IMMUNOGLOBUL , OLIGOBANDS No results found for: [id number] , HEPCAB No results found for: CRP , ANATITER , ANCA FERRITIN: No results found for: FERRITIN ---- CTA head neck angio w and wo IV contrast Narrative: Patient Name: PERRY GOSS : 1950 [facility]#: [id number] Exam Date/Time: 11/23/2022 13:42 Procedure: CT HEAD NECK ANGIO W AND WO IV CONTRAST Ordering Provider: PONCE JAMES Reason For Exam: Vision loss, binocular Reasons for examination: Vision loss. CT angiographic studies of the extracranial and intracranial vessels was performed following the acquisition of high resolution helical CT data during bolus contrast infusion. The data set was then post process on the [employer] workstation, with reconstructed 3D volume rendered CT angiographic renderings of the extracranial vessels. Vessel measurements of any carotid stenosis use the technique of measuring the internal carotid artery/ distal common carotid artery/ internal carotid artery above the stenosis by NASCET criteria. Dose reduction was employed with automated exposure control. There is patent flow in the right and left common carotid arteries. There is patent flow in the right and left cervical vertebral arteries. The right carotid bifurcation demonstrates atherosclerotic changes without severe stenosis. There is no ulceration. There is patent flow in the upper cervical right internal carotid artery. The left carotid bifurcation demonstrates atherosclerotic changes without severe stenosis. There is no ulceration. There is patent flow in the upper cervical left internal carotid artery. There is no evidence of dissection. Impression: 1. CTA EXTRACRANIAL --- RIGHT CAROTID SYSTEM-- calcified plaquing with maximum diameter narrowing of 20-30% LEFT CAROTID SYSTEM-- calcified plaquing with maximum diameter narrowing of 40-50% VERTEBRAL ARTERIES --patent bilaterally with proximal tortuosity without stenosis 2. CTA INTRACRANIAL --- There is no evidence of aneurysm or significant intracranial stenosis. origin left posterior cerebral artery, patent anterior communicating artery and right posterior communicating artery, calcified plaquing carotid siphons without stenosis. 3. Degenerated disc at C5-C6 and C6-C7. Bilateral apical pleural thickening with upper lung parenchymal probable scarring bilaterally, right greater than left Heterogeneous thyroid gland without large nodules. Report Dictated on Electronically Signed By: Dilan Rodriguez MD Electronically Signed Date/Time: 11/23/2022 5:44 PM EDT @LASTAPPOINTMENTTHISPROV@ IMPRESSION and PLAN: Problem List Items Addressed This Visit None Visit Diagnoses Migraine aura without headache - Primary Gait disturbance Transient visual loss of both eyes TIA (transient ischemic attack) Relevant Orders Cardiac event monitor (30 days) 1. No new episodes; ophthalmology exam normal; continue to follow PRN 2. Stable; no reason for this on MRI or CTA; states always had gait issues as long as she can remember; follow PRN 3. Cardiac event monitor; follow with cardiology as scheduled 4. Cardiac event monitor ; follow with cardiology as scheduled No problem-specific Assessment & Plan notes found for this encounter. JAYDE Whitman CNP I spent 40 minutes caring for this patient today, reviewing labs, records, seeing the patient, documenting in the record and arranging for studies. Electronically signed by @PIERO@ on @TDNR@ at @NOWNR@ documented in this encounter [facility] 01-04-2023 History of Presen t illness Narrative Images from the original note were not included. [facility] [address] [place] [address] [facility] [address] Dept: [phone] Dept Loc: [phone] Haven Ponce MD CHIEF COMPLAINT: Chief Complaint Patient presents with Follow-up HISTORY OF PRESENT ILLNESS: The patient is a 72 y.o. person who returns with visual disturbances. We reviewed the history. She reports that she has had episodes of total binocular loss of vision. It lasted 5 min. No loss of consciousness. She reports that that she had loss of vision in the left eye like a blinder over the left eye. This was seconds and like the binocular vision loss events there was no dizziness or JEAN. She reports that she has frequent episodes of 5-10 min of wavy lines. She has also had episodes of diplopia, vertical. It lasted 5-7 minutes. No dizziness. She thinks these episodes started last year. She reports that she feels funny when this happens. She reportss that she has had gait instability. She has had falls with head injury that has required trips to the ER. She broke a foot bone and needed surgery in 2019 Past Medical History: has a past medical history of HL (hearing loss) and Hypertension. Past Surgical History: has a past surgical history that includes Cardiac surgery; Tonsillectomy; and Cataract extraction (Bilateral). Medications: Current Outpatient Medications: amLODIPine (Norvasc) 10 MG tablet, Take 10 mg by mouth daily., Disp: , Rfl: metoprolol succinate XL (Toprol-XL) 50 MG 24 hr tablet, Take 50 mg by mouth daily., Disp: , Rfl: Multiple Vitamins-Minerals (VITAMIN D3 COMPLETE PO), Take by mouth., Disp: , Rfl: alendronate (Fosamax) 70 MG tablet, TAKE 1 TABLET BY MOUTH EVERY WEEK 30 MINUTES BEFORE THE FIRST FOOD, BEVERAGE, OR MEDICINE OF THE DAY, Disp: , Rfl: Allergies: Patient has no known allergies. Social History: Social History Socioeconomic History Marital status: Spouse name: Not on file Number of children: Not on file Years of education: Not on file Highest education level: Not on file Occupational History Not on file Tobacco Use Smoking status: Never Smokeless tobacco: Never Substance and Sexual Activity Alcohol use: Never Drug use: Never Sexual activity: Not on file Other Topics Concern Not on file Social History Narrative Not on file Social Determinants of Health Financial Resource Strain: Not on file Food Insecurity: Not on file Transportation Needs: Not on file Physical Activity: Not on file Stress: Not on file Social Connections: Not on file Intimate Partner Violence: Not on file Housing Stability: Not on file Family History: Family History Problem Relation Name Age of Onset Asthma Mother Arthritis Father Cancer Father Asthma Sister Thyroid cancer Brother No Known Problems Brother No Known Problems Maternal Grandmother No Known Problems Maternal Grandfather No Known Problems Paternal Grandmother No Known Problems Paternal Grandfather No Known Problems Daughter Hypertension Son REVIEW OF SYSTEMS: Review of Systems Constitutional: Negative for appetite change, chills, diaphoresis, fever and unexpected weight change. HENT: Negative for dental problem and mouth sores. Eyes: Positive for visual disturbance. Negative for discharge and itching. Respiratory: Negative for chest tightness. Cardiovascular: Negative for chest pain and leg swelling. Gastrointestinal: Negative for rectal pain and vomiting. Endocrine: Negative for polydipsia, polyphagia and polyuria. Genitourinary: Negative for decreased urine volume, flank pain and genital sores. Musculoskeletal: Negative for arthralgias. Skin: Negative for color change. Allergic/Immunologic: Negative for food allergies and immunocompromised state. Neurological: Negative for headaches. Hematological: Negative for adenopathy. Does not bruise/bleed easily. Psychiatric/Behavioral: Negative for agitation, behavioral problems, decreased concentration, sleep disturbance and suicidal ideas. PHYSICAL EXAM: Vitals: BP (!) 145/83 (BP Location: Right arm, Patient Position: Sitting, BP Cuff Size: Adult) Pulse 65 Ht 5' 6 (1.676 m) Wt 177 lb (80.3 kg) BMI 28.57 kg/m General Appearance: Patient is in no apparent distress. Head is normocephalic, atraumatic Cardiovascular: Regular rate and rhythm. No heart murmurs. No carotid bruit Neurologic: Mentation: Alert and oriented x 3 to person, place and time. Speech and Language: Speech and language normal Concentration and Attention: Concentration normal Memory: Memory normal Fund of Knowledge: Fund of knowledge normal Cranial Nerves: II, III, IV, V, , VII, VIII, IX, X, XI, XII tested and were intact including fundoscopic exam (optic discs) and visual field to confrontation. Motor: Strength:Strength 5 out of 5 with normal tone Alternating Movements: Normal Cogwheel Rigidity: None Tone: Tone is normal Tremor / Involuntary Movements: None Deep Tendon Reflexes: 1 out of 4 symmetrical in all four limbs. Sensory: Normal sensation upper and lower extremities Coordination: Normal coordination upper and lower extremities Gait and Station: Station is abnormal. Gait is much better today. Small steps, but otherwise normal with good turns. Tends to walk on the balls of her toes DATA MRI report says chronic small vessel ischemic changes. Brain W/WO Contrast [facility] [address] [place] [address] Brain W/WO Contrast MR#: [id number] Acct: [id number] Name: PERRY GOSS Rep #: [id number] : 1950 F 72 From: Nolan Grissom MD PCP: Dr. Bebe Reeves DO Status: REG CLI Study: Brain W/WO Contrast Date of Exam: 08/19/22 Exam# [id number] Ordering Dr: Bebe Reeves DO EXAM: MR HEAD WITHOUT AND WITH INTRAVENOUS CONTRAST CLINICAL INDICATION: TANSIENT VISION LOSS, NORMAL EYE EXAM, ASSESS FOR STRUCTURAL -- NEUROLOGIC CAUSE TECHNIQUE: Multiplanar and multisequence MR images of the brain were obtained without and with intravenous contrast. CONTRAST: IV 15CC CLARISCAN COMPARISON: No relevant prior studies available. FINDINGS: BRAIN AND EXTRA-AXIAL SPACES: Periventricular small vessel ischemic change. Diffuse parenchymal atrophy. Posterior fossa structures are unremarkable. Basal cisterns are patent. No acute intracranial hemorrhage, mass effect or edema. No evidence of acute cortical stroke. No midline shift or hydrocephalus. SELLA: Unremarkable. Normal sella turcica, pituitary gland, infundibular stalk, optic chiasm and hypothalamus. AUDITORY SYSTEM: Unremarkable. The internal auditory canals are patent. BONES/JOINTS: Unremarkable. No discrete lytic or blastic abnormalities. SINUSES: Unremarkable as visualized. Clear. MASTOID AIR CELLS: Visualized sinuses and mastoid air cells are clear. ORBITS: Unremarkable as visualized. Both globes, extraocular muscles, optic nerves and retrobulbar fat appear unremarkable. VASCULATURE: Unremarkable as visualized. Normal flow voids in the major intracranial circulation. SOFT TISSUES: Unremarkable. No unusual enhancement. MRI/Brain W/WO Contrast IMPRESSION: 1. No evidence of acute intracranial pathology. 2. Diffuse involutional changes and chronic ischemic small vessel white matter disease. Electronically Signed: Nolan Grisosm MD Carotid ultrasound report says no significant stenosis. CBC: No results found for: WBC , RBC , HGB , HCT , MCV , MCH , MCHC , RDW , PLT , MPV CMP: No results found for: NA , K , CL , CO2 , BUN , CREATININE , AGRATIO , LABGLOM , GLUCOSE , GLU , PROT , CALCIUM , BILITOT , ALKPHOS , AST , ALT BMP: No results found for: NA , K , CL , CO2 , BUN , CREATININE , CALCIUM , LABGLOM , GLUCOSE , GLU PT/INR: No results found for: PROTIME , INR PTT: No results found for: APTT , PTT [APTT} FLP: No results found for: CHLPL , TRIG , HDL , LDLCALC , LDLDIRECT TSH: No results found for: TSH VITAMIN B12: No results found for: [id number] FERRITIN: No results found for: FERRITIN ---- No results found for: PHENYTOIN , PHENOBARB , VALPROATE , CBMZ No components found for: TOPIRA No results found for: OXCARBAZE , OXCARB @LASTAPPOINTMENTTHISPROV@ [facility] head neck angio w and wo IV contrast Narrative: Patient Name: PERRY GOSS : 1950 [facility]#: [id number] Exam Date/Time: 11/23/2022 13:42 Procedure: CT HEAD NECK ANGIO W AND WO IV CONTRAST Ordering Provider: PONCE JAMES Reason For Exam: Vision loss, binocular Reasons for examination: Vision loss. CT angiographic studies of the extracranial and intracranial vessels was performed following the acquisition of high resolution helical CT data during bolus contrast infusion. The data set was then post process on the [employer] workstation, with reconstructed 3D volume rendered CT angiographic renderings of the extracranial vessels. Vessel measurements of any carotid stenosis use the technique of measuring the internal carotid artery/ distal common carotid artery/ internal carotid artery above the stenosis by NASCET criteria. Dose reduction was employed with automated exposure control. There is patent flow in the right and left common carotid arteries. There is patent flow in the right and left cervical vertebral arteries. The right carotid bifurcation demonstrates atherosclerotic changes without severe stenosis. There is no ulceration. There is patent flow in the upper cervical right internal carotid artery. The left carotid bifurcation demonstrates atherosclerotic changes without severe stenosis. There is no ulceration. There is patent flow in the upper cervical left internal carotid artery. There is no evidence of dissection. Impression: 1. CTA EXTRACRANIAL --- RIGHT CAROTID SYSTEM-- calcified plaquing with maximum diameter narrowing of 20-30% LEFT CAROTID SYSTEM-- calcified plaquing with maximum diameter narrowing of 40-50% VERTEBRAL ARTERIES --patent bilaterally with proximal tortuosity without stenosis 2. CTA INTRACRANIAL --- There is no evidence of aneurysm or significant intracranial stenosis. origin left posterior cerebral artery, patent anterior communicating artery and right posterior communicating artery, calcified plaquing carotid siphons without stenosis. 3. Degenerated disc at C5-C6 and C6-C7. Bilateral apical pleural thickening with upper lung parenchymal probable scarring bilaterally, right greater than left Heterogeneous thyroid gland without large nodules. Report Dictated on Electronically Signed By: Dilan Rodriguez MD Electronically Signed Date/Time: 11/23/2022 5:44 PM EDT @[email or web address]@ No results found for: LEVETIRACETA , FERRITIN , CRP , TEJINDER , ANCA No results found for: DANII , IMMUNOGLOBUL , OLIGOBANDS No results found for: [id number] , HEPCAB No results found for: CRP , ANATITER , ANCA Patient Name: PERRY GOSS : 1950 [facility]#: [id number] Exam Date/Time: 11/23/2022 13:42 Procedure: CT HEAD NECK ANGIO W AND WO IV CONTRAST Ordering Provider: PONCE JAMES Reason For Exam: Vision loss, binocular Reasons for examination: Vision loss. CT angiographic studies of the extracranial and intracranial vessels was performed following the acquisition of high resolution helical CT data during bolus contrast infusion. The data set was then post process on the [employer] workstation, with reconstructed 3D volume rendered CT angiographic renderings of the extracranial vessels. Vessel measurements of any carotid stenosis use the technique of measuring the internal carotid artery/ distal common carotid artery/ internal carotid artery above the stenosis by NASCET criteria. Dose reduction was employed with automated exposure control. There is patent flow in the right and left common carotid arteries. There is patent flow in the right and left cervical vertebral arteries. The right carotid bifurcation demonstrates atherosclerotic changes without severe stenosis. There is no ulceration. There is patent flow in the upper cervical right internal carotid artery. The left carotid bifurcation demonstrates atherosclerotic changes without severe stenosis. There is no ulceration. There is patent flow in the upper cervical left internal carotid artery. There is no evidence of dissection. IMPRESSION: 1. CTA EXTRACRANIAL --- RIGHT CAROTID SYSTEM-- calcified plaquing with maximum diameter narrowing of 20-30% LEFT CAROTID SYSTEM-- calcified plaquing with maximum diameter narrowing of 40-50% VERTEBRAL ARTERIES --patent bilaterally with proximal tortuosity without stenosis 2. CTA INTRACRANIAL --- There is no evidence of aneurysm or significant intracranial stenosis. origin left posterior cerebral artery, patent anterior communicating artery and right posterior communicating artery, calcified plaquing carotid siphons without stenosis. 3. Degenerated disc at C5-C6 and C6-C7. Bilateral apical pleural thickening with upper lung parenchymal probable scarring bilaterally, right greater than left Heterogeneous thyroid gland without large nodules. Report Dictated on Electronically Signed By: Dilan Rodriguez MD Electronically Signed Date/Time: 11/23/2022 5:44 PM EDT ASSESSMENT AND PLAN: Diagnosis Plan 1. Transient visual loss of both eyes External referral to Ophthalmology 2. Gait disturbance No cause found in the MRI brain or the CTA. Before I just sign off on this as a migraine aura without migraine headache in a patient who has never had migraines, I have asked her to see an cement sprayer helper for a second opinion. She is walking fine today. She has always had a gait disturbance for as long as she can remember, and MRI and CT do not show a cause. Will follow I spent 30 minutes caring for this patient today, reviewing labs and records, seeing the patient, documenting in the record and arranging for studies. documented in this encounter [facility] 11-18-2022 Telephone encounter Note Lab orders have been faxed today to both [facility] registration and outpatient lab. Call to patient. Spoke with . notified. verbalized understanding. [facility] 11-18-2022 Miscellaneous Notes Lab orders have been faxed today to both [facility] registration and outpatient lab. Call to patient. Spoke with . notified. verbalized understanding. Thad (spouse) called in to see if lab orders have been faxed over to [facility]. Thad states Pt would like to get those done tomorrow. Thad states he does not have the fax # but states they did state they have a new fax #. Please advise Called to give schedule details/ Patient requested that we fax lab work order over to [facility] documented in this encounter [facility] 11-17-2022 Telephone encounter Note Thad (spouse) called in to see if lab orders have been faxed over to [facility]. Thad states Pt would like to get those done tomorrow. Thad states he does not have the fax # but states they did state they have a new fax #. Please advise [facility] [facility] Miscellaneous Notes Thad (spouse) called in to see if lab orders have been faxed over to [facility]. Thad states Pt would like to get those done tomorrow. Thad states he does not have the fax # but states they did state they have a new fax #. Please advise Called to give schedule details/ Patient requested that we fax lab work order over to [facility] documented in this encounter [facility] 11-17-2022 Note Addended by: HAEVN PONCE on: 11/17/2022 12:34 PM Modules accepted: Orders [facility] 11-17-2022 Telephone encounter Note Called to give schedule details/ Patient requested that we fax lab work order over to [facility] 11-17-2022 Telephone encounter Note This does not come up when asking for CTA's in the system. I did some searching and found an order that I have never used before, so hopefully they will be happy with that. [facility] 11-17-2022 Note Addended by: HAVEN PONCE on: 11/17/2022 12:34 PM Modules accepted: Orders [facility] 11-17-2022 Note Addended by: HAVEN PONCE on: 11/17/2022 12:34 PM Modules accepted: Orders [facility] 11-17-2022 Note Addended by: HAVEN PONCE on: 11/17/2022 12:34 PM Modules accepted: Orders [facility] 11-17-2022 Miscellaneous Notes This does not come up when asking for CTA's in the system. I did some searching and found an order that I have never used before, so hopefully they will be happy with that. Addended by: HAVEN PONCE on: 11/17/2022 12:34 PM Modules accepted: Orders I was trying to schedule patient for the CTA Head and Neck scheduling is asking if you can make an adjustment to the order. They want it to be one order CTA Head/Neck they said they can't schedule for separate orders. Thanks documented in this encounter [facility] 11-17-2022 Telephone encounter Note I was trying to schedule patient for the CTA Head and Neck scheduling is asking if you can make an adjustment to the order. They want it to be one order CTA Head/Neck they said they can't schedule for separate orders. Thanks [facility] 11-16-2022 Telephone encounter Note Peer to peer completed. CTA head and neck approved. Connie spoke with pts [facility] [employer] Work Phone: 11-16-2022 Miscellaneous Notes Peer to peer completed. CTA head and neck approved. Connie spoke with pts Thad is calling to speak to Shabana. Called back line and was told to send a TE as she was out to lunch. Spoke with Thad about the Status of pending Auth. Requested the info for pending review said he is calling the Insurance today to figure out what is going on with the Status. Let him know if he needed anything to call the office and transfer him back to ct for assistance. Name of caller: Thad Contact phone number: [phone] Relationship to Patient: spouse/SO Provider: Dr. Ponce Practice: Neurology Chief Complaint/Reason for Call: Thad is requesting a call back with a status update on the CT prior authorization. Thad states he was suppose to received a call 2 weeks ago and has not heard anything yet, leaving Thad very frustrated. Please call Thad and advise. Best time of day caller can be reached: Any Patient advised that office/PCP has 24-48 business hours to return their call: No documented in this encounter [facility] 11-16-2022 Telephone encounter Note Thad is calling to speak to Shabana. Called back line and was told to send a TE as she was out to lunch. [facility] 11-16-2022 Telephone encounter Note Spoke with Thad about the Status of pending Auth. Requested the info for pending review said he is calling the Insurance today to figure out what is going on with the Status. Let him know if he needed anything to call the office and transfer him back to ct for assistance. T [employer] 11-16-2022 Telephone encounter Note Name of caller: Thad Contact phone number: [phone] Relationship to Patient: spouse/SO Provider: Dr. Ponce Practice: Neurology Chief Complaint/Reason for Call: Thad is requesting a call back with a status update on the CT prior authorization. Thad states he was suppose to received a call 2 weeks ago and has not heard anything yet, leaving Thad very frustrated. Please call Thad and advise. Best time of day caller can be reached: Any Patient advised that office/PCP has 24-48 business hours to return their call: No T [employer] 11-06-2022 Telephone encounter Note I will follow up with patient once I hear something back from the Insurance [employer] 11-06-2022 Miscellaneous Notes I will follow up with patient once I hear something back from the Insurance Name of caller: Thad Contact phone number: [phone] Relationship to Patient: spouse/SO Provider: Dr. Ponce Practice: [facility] Chief Complaint/Reason for Call: Thad states he would like a call back from Connie regarding a status update on the patient's P2P review request by the patient's insurance company. Thad states he has been advised by the [facility] for two weeks he would receive a call back, however, he has not received one. Thad states he would like the office to contact the patient's insurance company today, 11/06/22, to expedite resolving this issue; instead of waiting for the insurance company to contact the office. Please contact Thad and advise. Best time of day caller can be reached: Any Patient advised that office/PCP has 24-48 business hours to return their call: No documented in this encounter [facility] 11-06-2022 Telephone encounter Note Name of caller: Thad Contact phone number: [phone] Relationship to Patient: spouse/SO Provider: Dr. Ponce Practice: Neurology, [place] Chief Complaint/Reason for Call: Thad states he would like a call back from Connie regarding a status update on the patient's P2P review request by the patient's insurance company. Thad states he has been advised by the [facility] for two weeks he would receive a call back, however, he has not received one. Thad states he would like the office to contact the patient's insurance company today, 11/06/22, to expedite resolving this issue; instead of waiting for the insurance company to contact the office. Please contact Thad and advise. Best time of day caller can be reached: Any Patient advised that office/PCP has 24-48 business hours to return their call: No [facility] 11-04-2022 Telephone encounter Note Joe states that they would like to know what is going on with the authorization for the CT scans - please call Joe uriz [facility] 11-04-2022 Miscellaneous Notes Joe states that they would like to know what is going on with the authorization for the CT scans - please call Joe ruiz I spoke with patient's spouse about the CTA Head/ Neck. I gave him a update on the Status of the Appeal that was sent. Insurance is requesting an peer to peer. documented in this encounter [facility] 10-28-2022 Telephone encounter Note I spoke with patient's spouse about the CTA Head/ Neck. I gave him a update on the Status of the Appeal that was sent. Insurance is requesting an peer to peer. [facility] 10-28-2022 Miscellaneous Notes I spoke with patient's spouse about the CTA Head/ Neck. I gave him a update on the Status of the Appeal that was sent. Insurance is requesting an peer to peer. documented in this encounter [facility] 10-28-2022 Telephone encounter Note Name of caller: Thad Contact phone number: [phone] Relationship to Patient: spouse/SO Provider: Dr Ponce [place] [facility] [place] Chief Complaint/Reason for Call: Thad states that he is calling to get an update on the PA appeal for the pt CT. Thad states that he would like to receive a cb to discuss the status of the appeal process. Please advise Best time of day caller can be reached: AM Patient advised that office/PCP has 24-48 business hours to return their call: Yes [facility] 10-28-2022 Miscellaneous Notes Name of caller: Thad Contact phone number: [phone] Relationship to Patient: spouse/SO Provider: Dr Ponce [place] [facility] [place] Chief Complaint/Reason for Call: Thad states that he is calling to get an update on the PA appeal for the pt CT. Thad states that he would like to receive a cb to discuss the status of the appeal process. Please advise Best time of day caller can be reached: AM Patient advised that office/PCP has 24-48 business hours to return their call: Yes documented in this encounter [facility] 10-23-2022 Telephone encounter Note Name of caller: Thad Contact phone number: [phone] Relationship to Patient: spouse/SO Provider: Dr Ponce Practice: [facility] Chief Complaint/Reason for Call: pts calling to get an update on scheduling for the CTA please advise Best time of day caller can be reached: AM Patient advised that office/PCP has 24-48 business hours to return their call: Yes [facility] 10-23-2022 Miscellaneous Notes Name of caller: Thad Contact phone number: [phone] Relationship to Patient: spouse/SO Provider: Dr Ponce Practice: [facility] Chief Complaint/Reason for Call: pts calling to get an update on scheduling for the CTA please advise Best time of day caller can be reached: AM Patient advised that office/PCP has 24-48 business hours to return their call: Yes Letter in the chart Auth for both CTA Head/ Neck were denied. Could I get an Appeal Letter please. Thanks documented in this encounter [facility] 10-22-2022 Telephone encounter Note Patient has been notified [facility] 10-22-2022 Miscellaneous Notes Patient has been notified Chronic small vessel disease is a common finding in MRI's of the brain in 73 year olds. When she is seen again we can discuss that in detail. Joe has been notified he is asking for more of an explanation for mild chronic small vessel disease I reviewed the MRI and she has mild chronic small vessel disease. She should continue her current meds and take a daily baby aspirin 81 mg. Name of caller: Joe Contact phone number: [phone] Relationship to Patient: spouse/SO Provider: Dr. Ponce Practice: Neurology, [place] Chief Complaint/Reason for Call: Joe states he would like to inform Dr. Ponce he has acquipred a copy of the patient's MRI from [facility]. Joe states he did not have a problem getting the disc. Joe states [place] in the [place] on [place]19[place], and will drop off the patient's disc to the office while he is out. Please be advised. Best time of day caller can be reached: Any Patient advised that office/PCP has 24-48 business hours to return their call: No documented in this encounter [facility] 10-21-2022 Telephone encounter Note Chronic small vessel disease is a common finding in MRI's of the brain in 73 year olds. When she is seen again we can discuss that in detail. [facility] 10-21-2022 Miscellaneous Notes Chronic small vessel disease is a common finding in MRI's of the brain in 73 year olds. When she is seen again we can discuss that in detail. Joe has been notified he is asking for more of an explanation for mild chronic small vessel disease I reviewed the MRI and she has mild chronic small vessel disease. She should continue her current meds and take a daily baby aspirin 81 mg. Name of caller: Joe Contact phone number: [phone] Relationship to Patient: spouse/SO Provider: Dr. Ponce Practice: Neurology, [place] Chief Complaint/Reason for Call: Joe states he would like to inform Dr. Ponce he has acquipred a copy of the patient's MRI from [facility]. Joe states he did not have a problem getting the disc. Joe states he will be in the [place] area on 10[place]19[place], and will drop off the patient's disc to the office while he is out. Please be advised. Best time of day caller can be reached: Any Patient advised that office/PCP has 24-48 business hours to return their call: No documented in this encounter [facility] 10-21-2022 Telephone encounter Note Joe has been notified he is asking for more of an explanation for mild chronic small vessel disease [facility] 10-21-2022 Miscellaneous Notes Joe has been notified he is asking for more of an explanation for mild chronic small vessel disease I reviewed the MRI and she has mild chronic small vessel disease. She should continue her current meds and take a daily baby aspirin 81 mg. Name of caller: Joe Contact phone number: [phone] Relationship to Patient: spouse/SO Provider: Dr. Ponce Practice: Neurology, [place] Chief Complaint/Reason for Call: Joe states he would like to inform Dr. Ponce he has acquipred a copy of the patient's MRI from [facility]. Joe states he did not have a problem getting the disc. Joe states he will be in the [place] area on [place]19[place], and will drop off the patient's disc to the office while he is out. Please be advised. Best time of day caller can be reached: Any Patient advised that office/PCP has 24-48 business hours to return their call: No documented in this encounter [facility] 10-21-2022 Telephone encounter Note Fax Appeal sent to [facility] for review [facility] 10-21-2022 Miscellaneous Notes Fax Appeal sent to [facility] for review documented in this encounter [facility] 10-20-2022 Telephone encounter Note Letter in the chart [facility] 10-20-2022 Miscellaneous Notes Letter in the chart Auth for both CTA Head/ Neck were denied. Could I get an Appeal Letter please. Thanks documented in this encounter [facility] 10-20-2022 Telephone encounter Note I reviewed the MRI and she has mild chronic small vessel disease. She should continue her current meds and take a daily baby aspirin 81 mg. [facility] 10-20-2022 Miscellaneous Notes I reviewed the MRI and she has mild chronic small vessel disease. She should continue her current meds and take a daily baby aspirin 81 mg. Name of caller: Joe Contact phone number: [phone] Relationship to Patient: spouse/SO Provider: Dr. Ponce Practice: Neurology [place] Chief Complaint/Reason for Call: Joe states he would like to inform Dr. Ponce he has acquipred a copy of the patient's MRI from [facility]. Joe states he did not have a problem getting the disc. Joe states he will be in the [place] on [place]19[place], and will drop off the patient's disc to the office while he is out. Please be advised. Best time of day caller can be reached: Any Patient advised that office/PCP has 24-48 business hours to return their call: No documented in this encounter [facility] 10-19-2022 Telephone encounter Note Auth for both CTA Head/ Neck were denied. Could I get an Appeal Letter please. Thanks [facility] 10-16-2022 Telephone encounter Note Name of caller: Joe Contact phone number: [phone] Relationship to Patient: spouse/SO Provider: Dr. Ponce Practice: Neurology, [place] Chief Complaint/Reason for Call: Joe states he would like to inform Dr. Ponce he has acquipred a copy of the patient's MRI from [facility]. Joe states he did not have a problem getting the disc. Joe states he will be in the [place] on 10/19/22, and will drop off the patient's disc to the office while he is out. Please be advised. Best time of day caller can be reached: Any Patient advised that office/PCP has 24-48 business hours to return their call: No [facility] 10-15-2022 History of Presen t illness Narrative Images from the original note were not included. [facility] [address] [place] [address] [facility] [address] Dept: [phone] Dept Loc: [phone] Haven Ponce MD Thank you for your kind request for a neurological consultation on this patient. CHIEF COMPLAINT: Chief Complaint Patient presents with New Patient Loss of Vision HISTORY OF PRESENT ILLNESS: The patient is a 72 y.o. person who presents with visual disturbances. She reports that she has had episodes of total binocular loss of vision. It lasted 5 min. No loss of consciousness. She reports that that she had loss of vision in the left eye like a blinder over the left eye. This was seconds and like the binocular vision loss events there was no dizziness or JEAN. She reports that she has frequent episodes of 5-10 min of wavy lines. She has also had episodes of diplopia, vertical. It lasted 5-7 minutes. No dizziness. She denies headaches in general. Years ago she got sinus headaches but that was a very long time ago. She reportss that she has had gait instability. She has had falls with head injury that has required trips to the ER. She broke a foot bone and needed surgery in 2019 Past Medical History: has a past medical history of Hypertension. Past Surgical History: has a past surgical history that includes Cardiac surgery; Tonsillectomy; and Cataract extraction (Bilateral). Medications: Current Outpatient Medications: alendronate (Fosamax) 70 MG tablet, TAKE 1 TABLET BY MOUTH EVERY WEEK 30 MINUTES BEFORE THE FIRST FOOD, BEVERAGE, OR MEDICINE OF THE DAY, Disp: , Rfl: amLODIPine (Norvasc) 10 MG tablet, Take 10 mg by mouth daily., Disp: , Rfl: metoprolol succinate XL (Toprol-XL) 50 MG 24 hr tablet, Take 50 mg by mouth daily., Disp: , Rfl: Multiple Vitamins-Minerals (VITAMIN D3 COMPLETE PO), Take by mouth., Disp: , Rfl: Allergies: Patient has no known allergies. Social History: Social History Socioeconomic History Marital status: Spouse name: Not on file Number of children: Not on file Years of education: Not on file Highest education level: Not on file Occupational History Not on file Tobacco Use Smoking status: Never Smokeless tobacco: Never Substance and Sexual Activity Alcohol use: Never Drug use: Never Sexual activity: Not on file Other Topics Concern Not on file Social History Narrative Not on file Social Determinants of Health Financial Resource Strain: Not on file Food Insecurity: Not on file Transportation Needs: Not on file Physical Activity: Not on file Stress: Not on file Social Connections: Not on file Intimate Partner Violence: Not on file Housing Stability: Not on file Family History: Family History Problem Relation Name Age of Onset Asthma Mother Arthritis Father Cancer Father Asthma Sister Thyroid cancer Brother No Known Problems Brother No Known Problems Maternal Grandmother No Known Problems Maternal Grandfather No Known Problems Paternal Grandmother No Known Problems Paternal Grandfather No Known Problems Daughter Hypertension Son REVIEW OF SYSTEMS: Review of Systems Constitutional: Negative for appetite change, chills, diaphoresis, fever and unexpected weight change. HENT: Negative for dental problem and mouth sores. Eyes: Positive for visual disturbance. Negative for discharge and itching. Respiratory: Negative for chest tightness. Cardiovascular: Negative for chest pain and leg swelling. Gastrointestinal: Negative for rectal pain and vomiting. Endocrine: Negative for polydipsia, polyphagia and polyuria. Genitourinary: Negative for decreased urine volume, flank pain and genital sores. Musculoskeletal: Negative for arthralgias. Skin: Negative for color change. Allergic/Immunologic: Negative for food allergies and immunocompromised state. Hematological: Negative for adenopathy. Does not bruise/bleed easily. Psychiatric/Behavioral: Negative for agitation, behavioral problems, decreased concentration, sleep disturbance and suicidal ideas. PHYSICAL EXAM: Vitals: BP (!) 147/74 (BP Location: Right arm, Patient Position: Sitting, BP Cuff Size: Adult) Pulse 63 Ht 5' 6 (1.676 m) Wt 175 lb (79.4 kg) BMI 28.25 kg/m General Appearance: Patient is in no apparent distress. Head is normocephalic, atraumatic Cardiovascular: Regular rate and rhythm. No heart murmurs. No carotid bruit Neurologic: Mentation: Alert and oriented x [address], [address] and time. Speech and Language: Speech and language normal Concentration and Attention: Concentration normal Memory: Memory normal Fund of Knowledge: Fund of knowledge normal Cranial Nerves: II, III, IV, V, , VII, VIII, IX, X, XI, XII tested and were intact including fundoscopic exam (optic discs) and visual field to confrontation. Motor: Strength:Strength 5 out of 5 with normal tone Alternating Movements: Normal Cogwheel Rigidity: None Tone: Tone is normal Tremor / Involuntary Movements: None Deep Tendon Reflexes: 1 out of 4 symmetrical in all four limbs. Sensory: Normal sensation upper and lower extremities Coordination: Normal coordination upper and lower extremities Gait and Station: Station is abnormal. Gait is abnormal. She has a wide based gait and reduced length of stride. DATA MRI report says chronic small vessel ischemic changes. Carotid ultrasound report says no significant stenosis. CBC: No results found for: WBC, RBC, HGB, HCT, MCV, MCH, MCHC, RDW, PLT, MPV CMP: No results found for: NA, K, CL, CO2, BUN, CREATININE, AGRATIO, LABGLOM, GLUCOSE, GLU, PROT, CALCIUM, BILITOT, ALKPHOS, AST, ALT BMP: No results found for: NA, K, CL, CO2, BUN, CREATININE, CALCIUM, LABGLOM, GLUCOSE, GLU PT/INR: No results found for: PROTIME, INR PTT: No results found for: APTT, PTT[APTT} FLP: No results found for: CHLPL, TRIG, HDL, LDLCALC, LDLDIRECT TSH: No results found for: TSH VITAMIN B12: No results found for: [id number] FERRITIN: No results found for: FERRITIN ---- No results found for: PHENYTOIN, PHENOBARB, VALPROATE, CBMZ No components found for: TOPIRANo results found for: OXCARBAZE, OXCARB @LASTAPPOINTMENTTHISPROV@ No image results found. @RESULTINGLABINFO@ No results found for: LEVETIRACETA, FERRITIN, CRP, TEJINDER, ANCA No results found for: DANII, IMMUNOGLOBUL, OLIGOBANDS No results found for: [id number], HEPCAB No results found for: CRP, ANATITER, ANCA, ANCA ASSESSMENT AND PLAN: Diagnosis Plan 1. Recurrent amaurosis fugax CTA head angio w and wo IV contrast Creatinine, Serum CTA neck angio w and wo IV contrast Creatinine, Serum 2. Ataxic gait 3. Binocular vision disorder with diplopia It is medically necessary for her to have a CTA neck and head to see if there is stenosis of the distal ICA's or the origins of the ophthalmic artery. She is to go on an 81 mg aspirin daily for prevention of stroke. I do not have the images of her MRI brain to review. She has a gait abnormality worrisome for a cerebellar disease processs. I do not know if she has a lesion in the midbrain that could explain this. Her exam today was fine. I spent 45 minutes caring for this patient today, reviewing labs and records, seeing the patient, documenting in the record and arranging for studies. documented in this encounter [facility] [employer] 09-02-2022 Telephone encounter Note Name of caller: Selma Contact phone number: [phone] Relationship to Patient: Dr. Bebe Reeves office Provider: Kris STEIN [place] [facility] [place] Chief Complaint/Reason for Call: Selma called in to see if office received Pt's referral. CAC made a chart for PT. Selma states she will fax it over again with along with Pt's information. Please advise Best time of day caller can be reached: Any Patient advised that office/PCP has 24-48 business hours to return their call: Yes [facility] [employer] 09-02-2022 Miscellaneous Notes Name of caller: Selma Contact phone number: [phone] Relationship to Patient: Dr. Bebe Reeves office Provider: Kris STEIN [place] [facility] [place] Chief Complaint/Reason for Call: Selma called in to see if office received Pt's referral. [facility] made a chart for PT. Selma states she will fax it over again with along with Pt's information. Please advise Best time of day caller can be reached: Any Patient advised that office/PCP has 24-48 business hours to return their call: Yes documented in this encounter [facility] [employer] [facility] [employer] [facility]* Diagnosis Recurrent amaurosis fugax- Primary Ataxic gait Abnormality of gait Binocular vision disorder with diplopia Diplopia [facility]* Diagnosis Recurrent amaurosis fugax Ataxic gait Abnormality of gait Binocular vision disorder with diplopia Diplopia documented in this [facility]* Diagnosis Transient visual loss of both eyes- Primary Gait disturbance Abnormality of gait documented [facility] this [facility]* Diagnosis Migraine aura without headache- Primary Migraine with aura, without mention of intractable migraine without mention of status migrainosus Gait disturbance Abnormality of gait Transient visual loss of both eyes TIA (transient ischemic attack) Unspecified transient cerebral ischemia [facility] Diagnosis 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 60-74 MINUTES Haven Ponce MD [address] [facility] [address] [place] [address] Clive Oconnor. [address] [place] [id number] Referral ID Status Reason Start Date Expiration Date Visits Requested Visits Authorized [id number] Pending Review Specialty Services Required 01/04/2023 01/04/2024 1 1 [facility] Reason for Referral Specialty Diagnoses / Procedures Referred By Contac t Referred To Contact Radiology Diagnoses Recurrent amaurosis fugax Procedures CTA neck angio w and wo IV contrast Haven Ponce MD [address] [place] [address] Referral ID Status Reason Start Date Expiration Date V isits Requested Visits Authorized [id number] Pending Review 10/15/2022 04/13/2023 1 1 Specialty Diagnoses / Procedures Referred By Contac t Referred To Contact Radiology Diagnoses Recurrent amaurosis fugax Procedures CTA head angio w and wo IV contrast Haven Ponce MD [address] [place] [address] Referral ID Status Reason Start Date Expiration Date V isits Requested Visits Authorized [id number] Pending Review 10/15/2022 04/13/2023 1 1 Specialty Diagnoses / Procedures Referred By Contac t Referred To Contact Radiology Diagnoses Recurrent amaurosis fugax Ataxic gait Binocular vision disorder with diplopia Procedures CTA head neck angio w and wo IV contrast Haven Ponce MD [address] [place] [address] Referral ID Status Reason Start Date Expiration Date V isits Requested Visits Authorized [id number] Authorized 11/17/2022 05/16/2023 1 1 Referral ID Status Reason Start Date Expiration Date Visits Re quested Visits Authorized [id number] Closed 11/17/2022 05/16/2023 1 1 Specialty Diagnoses / Procedures Referred By Contac t Referred To Contact Cardiology Diagnoses TIA (transient ischemic attack) Procedures Cardiac event monitor (30 days) WA XTRNL ECG & 48 HR RECORDING WA EXTERNAL ECG SCANNING ANALYSIS REPORT [facility] X[facility] ECG CONTINUOUS RHYTHM W/I&R UP TO 48 HRS [facility] MOBILE CV TELEMETRY W/I&REPORT 30 DAYS [facility] MOBILE CV TELEMETRY W/TECHNICAL SUPPORT Haven Ponce MD [address] [place] [address] Referral ID Status Reason Start Date Expiration Date V isits Requested Visits Authorized [id number] Pending Review 02/02/2023 08/01/2023 1 1 Summary Purpose Family History No Family History Records Found Advance Directives No Advanced Directives Records Found Additional Source Comments Reason for Visit (unrecogniz ed section and content) Reason Comments New Patient Loss of Vision Specialty Diagnoses / Procedures Referred By Contac t Referred To Contact Neurology Diagnoses Transient visual loss, bilateral Procedures [place] OFFICE/OUTPATIENT NEW MODERATE MDM 45-59 MINUTES Bebe Reeves [address] [place] [address] [facility] [address] [facility] [address] [place] [address] Referral ID Status Reason Start Date Expiration Date V isits Requested Visits Authorized [id number] Pending Review 09/02/2022 09/03/2023 1 1 Reason Onset Date Comments Advice Only 10/16/2022 Drop-off MRI Res ults 10/19/22 Reason Onset Date Comments Prior Authorization 10/28/2022 Reason Onset Date Comments Prior Authorization 11/06/2022 CTA Head/ Ne ck; Refer to 11/05/22 TE Reason Onset Date Comments Prior Authorization 11/16/2022 Refer to 11/06 TE Specialty Diagnoses / Procedures Referred By Contac t Referred To Contact Radiology Diagnoses Recurrent amaurosis fugax Ataxic gait Binocular vision disorder with diplopia Procedures CTA head neck angio w and wo IV contrast Haven Ponce MD [address] [facility] [address] [place] [address] Referral ID Status Reason Start Date Expiration Date Visits Re quested Visits Authorized [id number] Closed 11/17/2022 05/16/2023 1 1 Reason Comments Follow-up Reason Comments Follow-up Loss of Vision Gait Problem Reason Comments Follow-up Migraine Care Teams (unrecognized sec tion and content) Law Office Assistant Relationship Specialty Start Date End Date Bebe Reeves [address] [address] PCP - General Family Medicine 10/15/22 Law Office Assistant Relationship Specialty Start Date End Date Bebe Reeves [address] [place] [phone] PCP - General Family Medicine 10/15/22 Law Office Assistant Relationship Specialty Start Date End Date Bebe Reeves [address] [place] [address] PCP - General Family Medicine 10/15/22 Law Office Assistant Relationship Specialty Start Date End Date Bebe Reeves [address] [place] [address] PCP - General Family Medicine 10/15/22 Law Office Assistant Relationship Specialty Start Date End Date Bebe Reeves [address] [place] [address] PCP - General Family Medicine 10/15/22 Law Office Assistant Relationship Specialty Start Date End Date Bebe Reeves [address] [place] [address] PCP - General Family Medicine 10/15/22 Law Office Assistant Relationship Specialty Start Date End Date Bebe Reeves [address] [place] [phone] PCP - General Family Medicine 10/15/22 Law Office Assistant Relationship Specialty Start Date End Date Bebe Reeves [address] [place] [phone] PCP - General Family Medicine 10/15/22 Law Office Assistant Relationship Specialty Start Date End Date Bebe Reeves [address] [place] [address] PCP - [facility] 10/15/22 Law Office Assistant Relationship Specialty Start Date End Date Bebe Reeves [address] [place] [address] PCP - [facility] 10/15/22 Law Office Assistant Relationship Specialty Start Date End Date Bebe Reeves [address] [place] [address] PCP - [facility] 10/15/22 Law Office Assistant Relationship Specialty Start Date End Date Bebe Reeves [address] [place] [address] PCP - [facility] 10/15/22 INFORMATION SOURCE (unrecogn ized section and content) FOR RECORDS PERTAINING TO PATIENTS WHO ARE OR HAVE BEEN ENROLLED IN A CHEMICAL DEPENDENCY/SUBSTANCEABUSE PROGRAM, SOME INFORMATION MAY BE OMITTED. This clinical summary was aggregated from multiple sources. Caution should be exercised in using it in the provision of clinical care. This summary normalizes information from multiple sources, and as a consequence, information in this document may materially change the coding, format and clinical context of patient data. In addition, data may be omitted in some cases. CLINICAL DECISIONS SHOULD BE BASED ON THE PRIMARY CLINICAL RECORDS. [employer] [facility]. provides no warranty or guarantee of the accuracy or completeness of information in this document.
[2023-03-27 12:44] LABS: Cholesterol 172 mg/dL (200); High Density Lipoprotein 54 mg/dL; Triglycerides 121 mg/dL; Very Low Density Lipoprotein 24 mg/dL (5-40)
== END | disposition home or self-care (01) ==
PROVIDERS: PCP Family Medicine
DX: I67.2 Cerebral atherosclerosis (principal)
CPT/HCPCS: 36415; 80061

== ENCOUNTER → 2024-09-11 | Outpatient (CLI) | payer MEDICARE, OTHER, SELFPAY ==
--- NOTE | 2024-09-11 10:45 | RAD_ITS ---
PROCEDURE: SHOULDER MIN 2 VIEWS 09/11/2024 REASON FOR EXAM: R SHOULDER PAIN Right shoulder pain for 6 months. TECHNIQUE: Four views right shoulder. COMPARISON: None FINDINGS: Bones: Diffuse mild osteopenia of the right shoulder structures is noted. There are no fractures or dislocations. Joints: The acromioclavicular, glenohumeral and coracoclavicular joints are well preserved. Soft tissues: Unremarkable Other: The visualized right ribs are intact. There is no pneumothorax or lung contusion. Surgical silvia overlie of the right hilar region. Arteriosclerotic vascular disease of the aorta is noted. RAD/Shoulder min 2 Views IMPRESSION: Diffuse mild osteopenia of the right shoulder osseous structures. Reading Location: [id number]
--- NOTE | 2024-09-11 10:45 | RAD_ITS ---
PROCEDURE: HIP, UNI W/ PELVIS 2-3 VIEWS 09/11/2024 REASON FOR EXAM: UPPER AND LOWER LEG PAIN TECHNIQUE: HIP, UNI W/ PELVIS 2-3 VIEWS COMPARISON: None FINDINGS: Bones: Diffuse osteopenia of the bony pelvis and both hips is noted. There are no fractures or dislocations. Joints: Mild arthritic changes of both hip joints are noted. SI joints are well preserved. Pubic symphysis demonstrates mild arthritic changes. Soft tissues: Unremarkable. Other: Phleboliths are seen in the pelvis. Surgical clips are seen inferior to the right hip region. RAD/HIP, UNI W/ Pelvis 2-3 Views IMPRESSION: Diffuse osteopenia of the bony pelvis and both hips. Mild arthritic changes of both hip joints. Mild arthritic changes of the pubic symphysis. Reading Location: [id number]
--- NOTE | 2024-09-11 10:45 | RAD_ITS ---
EXAM: Two views right tibia and fibula CLINICAL HISTORY: Upper and lower leg pain. COMPARISON: None TECHNIQUE: Two views of the right tibia and fibula FINDINGS: Two views of the right tibia and fibula demonstrate normal mineralization of the osseous structures. There are no fractures or dislocations. Joint spaces are well preserved. No appreciable soft tissue swelling is seen. RAD/Tibia & Fibula 2 Views IMPRESSION: Unremarkable right tibia and fibula study. Reading Location: [id number]
== END | disposition home or self-care (01) ==
LOC: RAD 10:27
PROVIDERS: PCP Family Medicine; Referring Provider Family Medicine; Visit Provider Family Medicine
DX: M25.511 Pain in right shoulder (principal); M79.604 Pain in right leg
CPT/HCPCS: 73030; 73502; 73590

== ENCOUNTER → 2025-01-03 | Outpatient (CLI) | payer MEDICARE, OTHER, SELFPAY ==
--- NOTE | 2025-01-03 12:11 | BI_ITS ---
EXAM: SCRN MAMM (CAD)W/CHRISTA BILAT DATE: 01/03/2025 CLINICAL HISTORY: F, Age 74 y/o , SCREENING No family history. TECHNIQUE: Procedure Code: [id number] Modality: MG Procedure: SCRN MAMM (CAD)W/CHRISTA BILAT COMPARISON: Prior exam(s) dated January 20, 2022.. FINDINGS: TISSUE DENSITY: The breasts are extremely dense, which lowers the sensitivity of mammography. Bilateral Breast Mammographic Findings: No significant masses, calcifications or other abnormalities are identified. No suspicious masses, areas of developing architectural distortion, or suspicious calcifications. There has been no significant interval change. BI/SCRN MAMM (CAD)W/CHRISTA BILAT IMPRESSION: Stable bilateral screening mammogram. OVERALL FINAL ASSESSMENT BI-RADS 1: NEGATIVE. RECOMMENDATION: Routine annual follow-up in 1 Year Additional Recommendation none A letter with findings and recommendations will be mailed to the patient. Reading Location: [facility]
== END | disposition home or self-care (01) ==
LOC: OPBI 12:10
PROVIDERS: PCP Family Medicine; Referring Provider Family Medicine; Visit Provider Family Medicine
DX: Z12.31 Encounter for screening mammogram for malignant neoplasm of breast (principal)
CPT/HCPCS: 77063; 77067